=== PATIENT | female | born 1950 | race Caucasian/White ===

== ENCOUNTER 2016-08-19 14:29 | Inpatient (IN) | payer BC ==
[2016-08-19] MEDS ORDERED: DILTIAZEM 5 MG/ML 5 ML VIAL IVP STA ×2 (14:38→15:02)
[2016-08-19] MEDS ORDERED: SODIUM CHLORIDE 0.9% 500 ML IV STA (14:38)
[2016-08-19] MEDS ORDERED: SODIUM CHLORIDE 0.9% 1,000 ML IV STA (14:38)
[2016-08-19] MEDS ORDERED: LORazepam 2 MG/ML SYRINGE IV STA (14:39)
[2016-08-19] MEDS ORDERED: DILTIAZEM 125 MG in SODIUM CHLORIDE 0.9% 100 ML IV ONE (14:42)
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
[2016-08-19 15:12] LABS: ALT 41 U/L (9-52); AST 31 U/L (14-36); Alkaline Phosphatase 95 U/L (38-126); Anion Gap 11 mmol/L; Blood Urea Nitrogen 15 mg/dL (7-17); Calcium 9.3 mg/dL (8.4-10.2); Carbon Dioxide 23 mmol/L (22-30); Chloride 105 mmol/L (98-107); Glucose 128 mg/dL (74-99); Magnesium 1.9 mg/dL (1.6-2.3); Non-African American GFR(MDRD) >60 (>60 ml/min/1.73 sqM); Phosphorous 3.5 mg/dL (2.5-4.5); Potassium 4.3 mmol/L (3.5-5.1); Sodium 139 mmol/L (137-145); Total Bilirubin 0.4 mg/dL (0.2-1.3); Total Protein 7.1 g/dL (6.3-8.2)
[2016-08-19 15:16] LABS: Aty Lym Flag Slight; CH 32.5; CHCM 34.3; Creatine Kinase 77 U/L (30-135); HCT 47.2 % (34.0-46.0); HDW 2.28; HGB 16.7 gm/dL (11.4-16.0); MCH 33.6 pg (25.0-35.0); MCHC 35.3 g/dL (31.0-37.0); MCV 95.1 fL (80.0-100.0); Mean Platelet Volume 6.8; RBC 4.96 m/uL (3.80-5.40); RDW 13.6 % (11.5-15.5); WBC (Perox) 7.86
[2016-08-19 15:19] LABS: Partial Thromboplastin Time 25.1 sec (22.0-30.0); Prothrombin Time 10.6 sec (9.0-12.0)
[2016-08-19] MEDS ORDERED: METOPROLOL TARTRATE 5 MG/5 ML VIAL IVP STA (15:21)
[2016-08-19 15:29] LABS: Creatine Kinase MB 1.2 ng/mL (0.0-2.4); Troponin I <0.012 ng/mL (0.000-0.034)
[2016-08-19 15:39] LABS: Add Differential Manual Differential
[2016-08-19] MEDS ORDERED: ASPIRIN 81 MG CHEW PO STA (15:39)
[2016-08-19] MEDS ORDERED: HEPARIN SODIUM,PORCINE 5,000 UNIT/ML 1 ML VIAL IV ONE (15:39)
[2016-08-19] MEDS ORDERED: HEPARIN SODIUM,PORCINE 5,000 UNIT/ML 1 ML VIAL IV PRN (15:39)
[2016-08-19] MEDS ORDERED: NITROGLYCERIN SL TABS 0.4 MG TAB SUBLINGUAL PRN (15:39)
[2016-08-19 15:42] LABS: Manual Review Performed; Nucleated Red Blood Cells 0 /100 WBC (0-0); Total Cells Counted 100
[2016-08-19 15:43] LABS: RBC Morphology Normal
[2016-08-19] MEDS: HEPARIN SODIUM,PORCINE/D5W PMX 25,000 UNIT in DEXTROSE/WATER 1 500ML.BAG IV SCH (16:13)
[2016-08-19] MEDS: SODIUM CHLORIDE 0.9% 1,000 ML IV SCH (17:30)
[2016-08-19 17:59] VITALS: BMI 24.9
--- NOTE | 2016-08-19 18:36 | XR ---
EXAMINATION TYPE: XR chest 2V DATE OF EXAM: 08/19/2016 COMPARISON: NONE HISTORY: Dizziness TECHNIQUE: Frontal and lateral views of the chest are obtained. FINDINGS: Heart size is normal. Lungs are clear. There is no heart failure. There are chest leads. T here are no hilar masses. Bony thorax is intact. IMPRESSION: No active cardiopulmonary disease.
[2016-08-19] MEDS: METOPROLOL TARTRATE 50 MG TAB PO SCH (21:53)
[2016-08-19 22:07] LABS: Creatine Kinase 68 U/L (30-135)
[2016-08-19 22:19] LABS: Creatine Kinase MB 1.1 ng/mL (0.0-2.4); Troponin I <0.012 ng/mL (0.000-0.034)
[2016-08-20 03:34] LABS: Mean Platelet Volume 6.6
[2016-08-20 03:46] LABS: Cholesterol 167 mg/dL (<200); HDL Cholesterol 98 mg/dL (40-60); Triglycerides 65 mg/dL (<150)
[2016-08-20 03:57] LABS: Creatine Kinase 52 U/L (30-135)
[2016-08-20 04:09] LABS: Creatine Kinase MB 1.1 ng/mL (0.0-2.4); Troponin I <0.012 ng/mL (0.000-0.034)
[2016-08-20] MEDS: SODIUM CHLORIDE 0.9% 1,000 ML IV SCH ×3 (07:46→20:13)
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
[2016-08-20] MEDS: METOPROLOL TARTRATE 50 MG TAB PO SCH ×2 (08:57→20:13)
[2016-08-20] MEDS: ASPIRIN 81 MG CHEW PO SCH (08:57)
[2016-08-20] MEDS ORDERED: ASPIRIN 325 MG TAB PO SCH (09:00)
[2016-08-20] MEDS ORDERED: ATORVASTATIN 80 MG TAB PO SCH (09:00)
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
--- NOTE | 2016-08-20 10:26 | P.PN ---
Progress Note - Text this is an addendum to the dictated cardiology consultation. The patient presents with symptoms of dizziness, diaphoresis and palpitations. She denies any chest discomfort or prior documented history of cardiac disease. And unfortunately she is under a lot of stress and she smokes 2-3 packs a day as well as drinks alcohol on a daily basis. On presentation she was noted to be tachycardic and the rate in the 160s, apparently received adenosine by EMS but with no change and subsequently was started on IV Cardizem and she is back in sinus mechanism at this time. Her rhythm strip could to present atrial flutter but the possibility of atrial tachycardia cannot be totally excluded. She has a history of hypertension but no history of diabetes. Patient was started on oral beta lamont and her IV Cardizem was stopped. We will obtain an echocardiogram with Doppler to evaluate her systolic function. Patient qualifies for anticoagulation but because of the history of severe chronic alcohol intake I'm concerned about the increased risk of bleeding. I have discussed those findings with her in detail. We will await the results of her workup for further recommendations. Thank you for this consult we will follow with you.
--- NOTE | 2016-08-20 10:31 | ECHOF ---
Referral Reason:lv function MEASUREMENTS -------- HEIGHT: 162.6 cm WEIGHT: 66.2 kg BP: 121/76 RVIDd: 2.7 cm (< 3.3) IVSd: 1.2 cm (0.6 - 1.1) LVIDd: 3.9 cm (3.9 - 5.3) LVPWd: 1.2 cm (0.6 - 1.1) IVSs: 1.7 cm LVIDs: 2.6 cm LVPWs: 1.4 cm LA Diam: 2.9 cm (2.7 - 3.8) LAESV Index (A-L): 29.64 ml/m Ao Diam: 3.1 cm (2.0 - 3.7) AV Cusp: 2.2 cm (1.5 - 2.6) MV EXCURSION: 13.666 mm (> 18.000) MV EF SLOPE: 77 mm/s (70 - 150) EPSS: 0.4 cm MV E James: 1.25 m/s MV DecT: 222 ms MV A James: 1.12 m/s MV E/A Ratio: 1.11 RAP: 5.00 mmHg RVSP: 30.18 mmHg FINDINGS -------- Sinus rhythm. This was a technically good study. The left ventricular size is normal. There is borderline concentric left ventricular hypertrophy. Overall left ventricular systolic function is normal with, an EF between 60 - 65 %. The right ventricle is normal in size. LA is midly dilated 29-33ml/m2. The right atrium is normal in size. The aortic valve was not well visualized. The mitral valve leaflets are mildly thickened. Mild mitral annular calcification present. There is trace mitral regurgitation. Mild tricuspid regurgitation present. Right ventricular systolic pressure is normal at < 35 mmHg. The pulmonic valve was not well visualized. The aortic root size is normal. Normal inferior vena cava with normal inspiratory collapse consistent with estimated right atrial pressure of 5 mmHg. The pericardium is normal. CONCLUSIONS -------- 1. Sinus rhythm. 2. Mild mitral annular calcification present. 3. There is trace mitral regurgitation. 4. Mild tricuspid regurgitation present. 5. Right ventricular systolic pressure is normal at < 35 mmHg. 6. The pulmonic valve was not well visualized. 7. The aortic root size is normal. 8. Normal inferior vena cava with normal inspiratory collapse consistent with estimated right atrial pressure of 5 mmHg. 9. The pericardium is normal. 10. This was a technically good study. 11. The left ventricular size is normal. 12. There is borderline concentric left ventricular hypertrophy. 13. Overall left ventricular systolic function is normal with, an EF between 60 - 65 %. 14. The right ventricle is normal in size. 15. LA is midly dilated 29-33ml/m2. 16. The aortic valve was not well visualized. 17. The mitral valve leaflets are mildly thickened. PULL THROUGH HOOKER: Mary Jo Ruiz RDCS
[2016-08-20] MEDS: HEPARIN SODIUM,PORCINE/D5W PMX 25,000 UNIT in DEXTROSE/WATER 1 500ML.BAG IV SCH (11:38)
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
--- NOTE | 2016-08-20 17:49 | PN ---
SUBJECTIVE: This is a 65-year-old white female with dizziness, diaphoresis, palpitations. She is under a lot of stress, smokes 2 to 3 packs a day. Alcohol on a daily basis. Tachycardic. Heart rate is in the 160s. She received adenosine on admission. She is on IV Cardizem at this time. She is on oral beta lamont per Cardiology. Her IV Cardizem was stopped due to chronic alcohol intake; they did not want to do possibly a blood thinner. Echo is pending. CARDIOVASCULAR: S1, S2. LUNGS: Transmitted upper airway sounds. GI: Soft. HEMATOLOGIC: Negative Homans. PSYCH: Non-stop complaining about her with rapid speech. Psychiatrist saw the patient also; said no need for inpatient psych treatment and recommended staying away from alcohol, and no other psychiatric care is needed. ( ) reviewed. ASSESSMENT: 1. Atrial fibrillation, new onset, with history of supraventricular tachycardia. 2. Anxiety. 3. Secondary polycythemia. 4. Hypertension. 5. Dyslipidemia. Continue current treatment. Follow up in the next 24 to 48 hours with plans per Cardiology.
[2016-08-21] MEDS ORDERED: MELATONIN 5 MG TABLET PO PRN (02:19)
[2016-08-21 03:42] LABS: Anion Gap 8 mmol/L; Blood Urea Nitrogen 16 mg/dL (7-17); Calcium 9.3 mg/dL (8.4-10.2); Carbon Dioxide 22 mmol/L (22-30); Chloride 108 mmol/L (98-107); Glucose 109 mg/dL (74-99); Non-African American GFR(MDRD) >60 (>60 ml/min/1.73 sqM); Potassium 4.4 mmol/L (3.5-5.1); Sodium 138 mmol/L (137-145)
[2016-08-21 04:44] VITALS: TEMP 97.8
[2016-08-21 06:46] LABS: Basophils % (A) 0 %; CH 32.3; CHCM 33.3; Eosinophils # (A) 0.1 k/uL (0-0.7); Eosinophils % (A) 1 %; HCT 44.2 % (34.0-46.0); HDW 2.24; HGB 14.3 gm/dL (11.4-16.0); Luc # (Auto) 0.39; Luc % (Auto) 3; Lymphocytes # (A) 1.7 k/uL (1.0-4.8); Lymphocytes % (A) 13 %; MCH 31.4 pg (25.0-35.0); MCHC 32.2 g/dL (31.0-37.0); MCV 97.5 fL (80.0-100.0); Mean Platelet Volume 6.5; Monocytes # (A) 0.8 k/uL (0-1.0); Monocytes % (A) 6 %; Neutrophils % (A) 77 %; RBC 4.54 m/uL (3.80-5.40); RDW 13.7 % (11.5-15.5); WBC 13.1 k/uL (3.8-10.6); WBC (Perox) 12.91
[2016-08-21 09:11] VITALS: RESP 18
[2016-08-21] MEDS ORDERED: METOPROLOL TARTRATE 25 MG TAB PO SCH (10:00)
--- NOTE | 2016-08-21 12:31 | P.PN ---
Subjective Principal diagnosis: Atrial flutter This 65-year-old female who initially presented to the hospital with symptoms of dizziness and diaphoresis. She was found to be in atrial flutter with rapid ventricular response. She is currently in normal sinus rhythm. Patient does have a history of hypertension. She also drinks an excessive amount of alcohol. Due to her alcohol intake Dr. Davis was concerned about the increased risk for bleeding and therefore she was not initiated on anticoagulation. She was started on a beta lamont which we will continue. Blood pressure in the 170 range this morning, patient did not yet received her beta lamont. If blood pressure remains stable, from cardiology's perspective she may be able to be discharged once cleared by her primary. We will make her a follow-up appointment in the office post discharge. Objective - Vital Signs Vital signs: Vital Signs Temp 97.8 F 08/21/16 04:00 Pulse 84 08/21/16 08:00 Resp 18 08/21/16 08:00 BP 175/80 08/21/16 08:00 Pulse Ox 96 08/21/16 04:00 Intake & Output 08/20/16 08/21/16 08/21/16 18:59 06:59 18:59 Intake Total 1188.772 327.25 180 Output Total 600 600 Balance 1188.772 -272.75 -420 Weight 66.7 kg 66.7 kg Intake: IV 130 Heparin Sodium,Porcine/ 130 D5w Pmx 25,000 unit In Dextrose/Water 1 500ml. bag @ 12 UNITS/KG/HR 15. 78 mls/hr IV .Q24H MICHAEL Rx #:[id number] Intake, IV Titration 408.772 197.25 Amount Heparin Sodium,Porcine/ 388.772 197.25 D5w Pmx 25,000 unit In Dextrose/Water 1 500ml. bag @ 12 UNITS/KG/HR 15. 78 mls/hr IV .Q24H MICHAEL Rx #:[id number] Sodium Chloride 0.9% 1, 20 000 ml @ 100 mls/hr IV . Q10H MICHAEL Rx#:[id number] Oral 780 180 Output: Urine 600 600 Other: Voiding Method Toilet Toilet Toilet # Voids 1 1 - Exam PHYSICAL EXAMINATION: HEENT: Head is atraumatic, normocephalic. Pupils equal, round. Neck is supple. There is no elevated jugular venous pressure. HEART EXAMINATION: Heart S1, S2 normal. No murmur or gallop heard. CHEST EXAMINATION: Lungs are clear to auscultation and precussion. No chest wall tenderness is noted on palpation or with deep breathing. ABDOMEN: Soft, nontender. Bowel sounds are heard. No organomegaly noted. EXTREMITIES: 2+ peripheral pulses with no evidence of peripheral edema and no calf tenderness noted. NEUROLOGIC patient is awake, alert and oriented -3. . - Labs CBC & Chem 7: 08/21/16 06:29 08/21/16 03:03 Labs: Abnormal Lab Results - Last 24 Hours (Table) 08/20/16 08/20/16 08/21/16 Range/Units 16:12 22:23 03:03 WBC (3.8-10.6) k/uL Neutrophils # (1.3-7.7) k/uL APTT 43.4 H 46.4 H (22.0-30.0) sec Chloride 108 H (98-107) mmol/L Glucose 109 H (74-99) mg/dL 08/21/16 08/21/16 Range/Units 03:03 06:29 WBC 13.1 H (3.8-10.6) k/uL Neutrophils # 10.0 H (1.3-7.7) k/uL APTT 43.3 H (22.0-30.0) sec Chloride (98-107) mmol/L Glucose (74-99) mg/dL Assessment and Plan Plan: Assessment and plan #1 atrial flutter with rapid ventricular response, paroxysmal. Currently in normal sinus rhythm. TSH normal. #2 hypertension #3 asthma #4 nicotine dependence #5 EtOH abuse #6 anxiety Plan Echocardiogram with Doppler study was performed which revealed normal left ventricular systolic function. From cardiology's perspective we will add Lopressor 25 mg one tablet by mouth twice a day to her medication regime. She may be able to be discharged once cleared by her primary and we'll make her a follow-up appointment in the office post discharge. DNP note has been reviewed, I agree with a documented findings and plan of care. Patient was seen and examined.
[2016-08-21 12:45] VITALS: BP 156/82; PULSE 87
[2016-08-21] MEDS: ASPIRIN 81 MG CHEW PO SCH (13:29)
[2016-08-21] MEDS ORDERED: ALBUTEROL NEBULIZED 2.5 MG/3 ML INHALATION PRN (13:41)
[2016-08-21] MEDS ORDERED: NON-FORMULARY DRUG (Inulin/Chromium Picolinate [Fiber Gummies Chew] 1 TAB) PO SCH (21:00)
[2016-08-22] MEDS ORDERED: TIOTROPIUM 18 MCG/PUFF INHALER INHALATION SCH (08:00)
[2016-08-22] MEDS ORDERED: LACTOBACILLUS ACIDOPH & BULGAR 1 EACH PACKET PO SCH (09:00)
[2016-08-22] MEDS ORDERED: DILTIAZEM CD 180 MG CAP.ER.24H PO SCH (09:00)
[2016-08-22] MEDS ORDERED: CALCIUM CARBONATE 500 MG CHEWABLE PO SCH (09:00)
[2016-08-22] MEDS ORDERED: ESTROGENS, CONJUGATED 0.625 MG TAB PO SCH (09:00)
[2016-08-22] MEDS ORDERED: LISINOPRIL 20 MG TAB PO SCH (09:00)
[2016-08-22] MEDS ORDERED: MULTIVITAMINS, THERA 1 EACH TAB PO SCH (12:00)
== END 2016-08-21 17:21 | disposition home or self-care (01) | DRG 310 ==
LOC: EC 14:29 → 6SEL 15:39
PROVIDERS: ADMIT Family Medicine; ATTEND Family Medicine
DX: I48.92 Unspecified atrial flutter (principal); D75.1 Secondary polycythemia; I10 Essential (primary) hypertension; I48.91 Unspecified atrial fibrillation; J44.9 Chronic obstructive pulmonary disease, unspecified; F43.10 Post-traumatic stress disorder, unspecified; F32.9 Major depressive disorder, single episode, unspecified; F10.20 Alcohol dependence, uncomplicated; F41.9 Anxiety disorder, unspecified; F17.210 Nicotine dependence, cigarettes, uncomplicated; K57.90 Diverticulosis of intestine, part unspecified, without perforation or abscess without bleeding; E78.5 Hyperlipidemia, unspecified; Z79.899 Other long term (current) drug therapy; Z82.49 Family history of ischemic heart disease and other diseases of the circulatory system
CPT/HCPCS: 36415; 71020; 80048; 80053; 80061; 82550; 82553; 83735; 84100; 84439; 84443; 84484; 85025; 85049; 85379; 85610; 85730; 93005; 93306; 96365; 96366; 96367; 96374; 96375; 96376; 99291

== ENCOUNTER 2019-07-05 15:58 | Emergency (ER) | payer BC ==
[2019-07-05 16:18] VITALS: TEMP 98.6
[2019-07-05 16:47] LABS: INR 1.3 (<1.2); Partial Thromboplastin Time 33.3 sec (22.0-30.0); Prothrombin Time 13.1 sec (9.0-12.0)
[2019-07-05 16:48] LABS: HCT 31.4 % (34.0-46.0); HGB 9.7 gm/dL (11.4-16.0); Hypochromasia Marked; MCHC 30.9 g/dL (31.0-37.0); MCV 87.2 fL (80.0-100.0); Platelet Count 664 k/uL (150-450); Poikilocytosis Slight; RDW 14.4 % (11.5-15.5); WBC 9.9 k/uL (3.8-10.6)
[2019-07-05 16:49] LABS: ALT 15 U/L (4-34); AST 23 U/L (14-36); African American GFR (CKD) >90 (>60 ml/min/1.73 sqM); Albumin 4.3 g/dL (3.5-5.0); Alkaline Phosphatase 102 U/L (38-126); Anion Gap 10 mmol/L; Blood Urea Nitrogen 14 mg/dL (7-17); Calcium 9.4 mg/dL (8.4-10.2); Carbon Dioxide 22 mmol/L (22-30); Chloride 103 mmol/L (98-107); Glucose 114 mg/dL (74-99); Magnesium 1.8 mg/dL (1.6-2.3); Non-African American GFR(CKD) >90 (>60 ml/min/1.73 sqM); Potassium 4.4 mmol/L (3.5-5.1); Sodium 135 mmol/L (137-145); Total Bilirubin 0.3 mg/dL (0.2-1.3); Total Protein 7.4 g/dL (6.3-8.2)
--- NOTE | 2019-07-05 16:49 | XR ---
EXAMINATION TYPE: XR chest 1V portable DATE OF EXAM: 07/05/2019 COMPARISON: 08/17/2016 HISTORY: Tachycardia and syncope TECHNIQUE: Single frontal view of the chest is obtained. FINDINGS: Appearing soft tissues partially obscure the lower lungs. There is no focal air space opac ity, pleural effusion, or pneumothorax seen. The cardiac silhouette size is within normal limits. The osseous structures are intact. IMPRESSION: No acute process.
[2019-07-05 17:01] LABS: Lymphocytes # (M) 1.88 k/uL (1.0-4.8); Monocytes # (M) 0.69 k/uL (0-1.0); Neutrophils # (M) 7.23 k/uL (1.3-7.7); Neutrophils % (M) 73 %; Nucleated Red Blood Cells 0 /100 WBC (0-0); Polychromasia Present; Total Cells Counted 100
[2019-07-05 17:41] VITALS: BP 152/79; PULSE 82; RESP 16
--- NOTE | 2019-07-05 17:43 | ED ---
General Adult HPI - General Chief complaint: Arrhythmia/Palpitations Stated complaint: Chest flutter Time Seen by Provider: 07/05/19 16:01 Source: patient Mode of arrival: ambulatory Limitations: no limitations - History of Present Illness Initial comments: Dictation was produced using [employer] dictation software. please excuse any gramm atical, word or spelling errors. This patient was cared for during a federal and state declared state of emergency secondary to Covid 19 Chief Complaint: 68-year-old female presents with palpitations. History of Present Illness: The 68-year-old female presents today with palpitations. Patient states that her palpitations have been more apparent last 48 hours. She states she woke up with palpitations. She does have history of atrial fibrillation. She noted that she her A. fib has been acting up recently. She does consume alcohol occasionally. Patient takes Rivaroxaban, she does have a ob scrub tech. She does take a beta lamont 3 times a day. The ROS documented in this emergency department record has been reviewed and confirmed by me. Those systems with pertinent positive or negative responses have been documented in the HPI. All other systems are other negative and/or noncontributory. PHYSICAL EXAM: General Impression: Alert and oriented x3, not in acute distress HEENT: Normocephalic atraumatic, extra-ocular movements intact, pupils equal and reactive to light bilaterally, mucous membranes moist. Cardiovascular: Heart regular rate and rhythm Chest: Able to complete full sentences, no retractions, no tachypnea Abdomen: abdomen soft, non-tender, non-distended, no organomegaly Musculoskeletal: Pulses present and equal in all extremities, no peripheral farida ma Motor: no focal deficits noted Neurological: CN II-XII grossly intact, no focal motor or sensory deficits noted Skin: Intact with no visualized rashes Psych: Normal affect and mood ED course: 68-year-old female with palpitations. Signs upon arrival are within acceptable limits. EKG shows normal sinus rhythm. Patient is not having palpitations at this time. She does take anticoagulation. Laboratory evaluation obtained. CBC unremarkable. Coag panel is unremarkable. Metabolic panel negative. Patient observed in emergency department for couple hours with no events on teacher adult education. We will increase patient's metoprolol dose. She is advised to follow-up with her ob scrub tech or primary care physician for outpatient management of palpitations. Medications reviewed her chart patient takes 50 mg twice a day. Patient is discharged and told to follow-up with her ob scrub tech. EKG interpretation: Ventricular rate default, normal sinus rhythm, NV interval 140, QRS 70, QTC 423. No NV prolongation, no QTC prolongation, no ST or T-wave changes noted. EKG compared to 08/19/2016 showing no changes. Overall, this EKG is unremarkable - Related Data Home Medications Medication Instructions Recorded Confirmed Albuterol Sulfate [Proventil Hfa] 2 puff INHALATION RT-Q6H PRN 08/19/16 11/16/17 Calcium Carbonate [Tums Ultra 2 tab PO DAILY 08/19/16 11/16/17 Strength] Diltiazem HCl [Diltiazem 24Hr ER] 180 mg PO DAILY 08/19/16 11/16/17 Estrogens, Conjugated [Premarin] 0.625 mg PO DAILY 08/19/16 11/16/17 Inulin/Chromium Picolinate [Fiber 1 tab PO BID 08/19/16 11/16/17 Gummies Chew] L.acidoph,Paracasei, B.lactis 1 cap PO DAILY 08/19/16 11/16/17 [Probiotic] Multivitamins, Thera [Multivitamin 1 tab PO DAILY 08/19/16 11/16/17 (formulary)] Tiotropium [place] [Spiriva] 1 cap INHALATION RT-DAILY 08/19/16 11/16/17 Estrogens, Conjugated [Premarin] 0.625 mg PO DAILY 11/16/17 11/16/17 Lisinopril [Zestril] 20 mg PO BID 11/16/17 11/16/17 Metoprolol Tartrate [Lopressor] 25 mg PO BID 11/16/17 11/16/17 Previous Rx's Medication Instructions Recorded Metoprolol Succinate (ER) [Toprol 100 mg PO DAILY #12 tab 07/05/19 XL] Allergies Allergy/AdvReac Type Severity Reaction Status Date / Time No Known Allergies Allergy Verified 07/05/19 16:15 Review of Systems ROS Statement: Those systems with pertinent positive or pertinent negative responses have been documented in the HPI. ROS Other: All systems not noted in ROS Statement are negative. Past Medical History Past Medical History: Atrial Fibrillation, Asthma, COPD, Hypertension Additional Past Medical History / Comment(s): diverticulosis, incontinent of urine History of Any Multi-Drug Resistant Organisms: C-DIFF Date of last positivie culture/infection: 11/2015 MDRO Source:: stool Past Surgical History: Appendectomy, Hysterectomy, Tonsillectomy Additional Past Surgical History / Comment(s): total hysterectomy Past Anesthesia/Blood Transfusion Reactions: No Reported Reaction Past Psychological History: Anxiety, Depression, PTSD Smoking Status: Current every day smoker Past Alcohol Use History: Daily Past Drug Use History: None Reported - Past Family History Father Family Medical History: Prostate Disorder Additional Family Medical History / Comment(s): panic attacks Mother Family Medical History: Hypertension General Exam Limitations: no limitations Course Vital Signs 07/05/19 07/05/19 16:15 17:40 Temperature 98.6 F Pulse Rate 87 82 Respiratory 18 16 Rate Blood Pressure 166/62 152/79 O2 Sat by Pulse 98 98 Oximetry Medical Decision Making - Lab Data Result diagrams: 07/05/19 16:15 07/05/19 16:15 Lab Results 07/05/19 07/05/19 07/05/19 Range/Units 16:15 16:15 16:15 WBC 9.9 (3.8-10.6) k/uL RBC 3.60 L (3.80-5.40) m/uL Hgb 9.7 L (11.4-16.0) gm/dL Hct 31.4 L (34.0-46.0) % MCV 87.2 (80.0-100.0) fL MCH 27.0 (25.0-35.0) pg MCHC 30.9 L (31.0-37.0) g/dL RDW 14.4 (11.5-15.5) % Plt Count 664 H (150-450) k/uL Neutrophils % (Manual) 73 % Lymphocytes % (Manual) 19 % Monocytes % (Manual) 7 % Basophils % (Manual) 1 % Neutrophils # (Manual) 7.23 (1.3-7.7) k/uL Lymphocytes # (Manual) 1.88 (1.0-4.8) k/uL Monocytes # (Manual) 0.69 (0-1.0) k/uL Basophils # (Manual) 0.10 (0-0.2) k/uL Nucleated RBCs 0 (0-0) /100 WBC Manual Slide Review Performed Polychromasia Present Hypochromasia Marked Poikilocytosis Slight PT 13.1 H (9.0-12.0) sec INR 1.3 H (<1.2) APTT 33.3 H (22.0-30.0) sec Sodium 135 L (137-145) mmol/L Potassium 4.4 (3.5-5.1) mmol/L Chloride 103 (98-107) mmol/L Carbon Dioxide 22 (22-30) mmol/L Anion Gap 10 mmol/L BUN 14 (7-17) mg/dL Creatinine 0.70 (0.52-1.04) mg/dL Est GFR (CKD-EPI)AfAm >90 (>60 ml/min/1.73 sqM) Est GFR (CKD-EPI)NonAf >90 (>60 ml/min/1.73 sqM) Glucose 114 H (74-99) mg/dL Calcium 9.4 (8.4-10.2) mg/dL Magnesium 1.8 (1.6-2.3) mg/dL Total Bilirubin 0.3 (0.2-1.3) mg/dL AST 23 (14-36) U/L ALT 15 (4-34) U/L Alkaline Phosphatase 102 (38-126) U/L Total Protein 7.4 (6.3-8.2) g/dL Albumin 4.3 (3.5-5.0) g/dL Disposition Clinical Impression: Palpitation Disposition: HOME SELF-CARE Condition: Good Instructions (If sedation given, give patient instructions): Heart Palpitations (ED) Additional Instructions: Please follow-up with your ob scrub tech. Resume your normal metoprolol dosing r karen today. Prescription for extended release metoprolol was sent to your preferred pharmacy. Please start 100 mg metoprolol ER tomorrow. Prescriptions: Metoprolol Succinate (ER) [Toprol XL] 100 mg PO DAILY #12 tab Is patient prescribed a controlled substance at d/c from ED?: No Referrals: Enio Shepard DO [Primary Care Provider] - 1-2 days Asaf Gonzalez MD [STAFF PHYSICIAN] - 1-2 days Time of Disposition: 18:23
== END 2019-07-05 18:50 | disposition home or self-care (01) ==
LOC: EC 15:58
DX: R00.2 Palpitations (principal); J44.9 Chronic obstructive pulmonary disease, unspecified; I10 Essential (primary) hypertension; I48.91 Unspecified atrial fibrillation; F17.200 Nicotine dependence, unspecified, uncomplicated; Z79.01 Long term (current) use of anticoagulants; Z79.899 Other long term (current) drug therapy
CPT/HCPCS: 36415; 71045; 80053; 83735; 85025; 85610; 85730; 93005; 99285

== ENCOUNTER 2019-11-09 08:25 | Day surgery (SDC) | payer BC, MEDICARE ==
[2019-10-24 16:07] VITALS: BMI 24.9
[~2019-11-09 08:25] MED LIST: LACTATED RINGERS 1,000 ML IV SCH; LIDOCAINE 1% (10MG/ML) FOR IV START INTRADERMA PRN
[2019-11-09 09:06] VITALS: RESP 16; TEMP 97.4
[2019-11-09] MEDS ORDERED: MIDAZOLAM 2 MG/2 ML VIAL IV ONE ×2 (09:07)
[2019-11-09] MEDS ORDERED: PROPOFOL 10 MG/ML 20 ML VIAL IV ONE (10:28)
--- NOTE | 2019-11-09 11:05 | P.PCN ---
Date of Procedure: 11/09/19 Procedure(s) Performed: Brief history: Patient is a pleasant 69-year-old white female scheduled for an elective upper endoscopy as well as colonoscopy as a part of evaluation of Iron deficiency anemia. Patient states her hemoglobin was 7.2 g/dL in July of this year and since then has been on iron supplements twice daily. She denies any abdominal pain, nausea vomiting, rectal bleeding or melena. Her last 2 weeks ago was 10.9 g/dL. Procedure performed: Esophagogastroduodenoscopy with biopsy Colonoscopy with argon plasma coagulation Preoperative diagnosis: Iron deficiency anemia. Anesthesia: MAC Procedure: After informed consent was obtained from the patient was brought into the endoscopy unit and IV sedation was administered by anesthesia under continuous monitoring. Initially upper endoscopy was done. The Olympus GF 160 video endoscope was inserted inserted into the mouth and esophagus intubated without any difficulty and was gradually advanced into the stomach and duodenum and carefully examined. The bulb and second part of the duodenum appeared normal. Biopsies were done duodenum to rule out celiac disease. The scope was then withdrawn into the stomach adequately insufflated with air and upon careful examination the antrum had scattered areas of erythema and submucosal gastritis and biopsies were done from this area. The body, cardia and fundus appeared normal. The scope was then withdrawn into the esophagus. The GE junction was located at 40 cm to the incisors. It appeared regular wit2 superficial erosions consistent with LA grade B reflux esophagitis.Rest of the esophagus appeared normal. there was some whitish exudates noted in the proximal esophagus and biopsies were done from this area. Patient tolerated the procedure well. At this time the patient continued to remain sedation. Initial digital rectal examination was normal. Olympus CF 160 video colonoscope was then inserted into the rectum and gradually advanced to the cecum without any difficulty. Careful examination was performed as the scope was gradually being withdrawn. The prep was excellent. In the base of the cecum where a large arteriovenous malformation measuring between 8 mm to 1 cm in size with no active bleeding. Argon plasma coagulation was performed performed with obliteration. The cecum, ascending colon, transverse colon, descending colon, sigmoid colon and rectum appeared normal. Scattered left-sided diverticulosis seen. Retroflexion was performed in the rectum and grade 2 internal hemorrhoids were noted. Patient tolerated the procedure well. Impression: 1. Upper endoscopy revealed mild antral gastritis and LA grade B reflux esophagitis 2. 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 Scattered sigmoid diverticulosis and grade 2 internal hemorrhoids Recommendations: Findings of this examination were discussed with the patient as well as her family. She was advised to follow with the biopsy results. She will continue with iron supplements daily. CBC on a monthly basis.
[2019-11-09] MEDS ORDERED: ONDANSETRON 4 MG/2 ML VIAL ONE (11:24)
[2019-11-09] MEDS ORDERED: ONDANSETRON 4 MG/2 ML VIAL IVP ONE (11:29)
[2019-11-09 11:32] VITALS: BP 164/75; PULSE 67
== END 2019-11-09 12:13 | disposition home or self-care (01) ==
LOC: ORWHC2ENDO 08:25
PROVIDERS: ATTEND Internal Medicine Gastroenterology
DX: Q27.39 Arteriovenous malformation, other site (principal); K64.1 Second degree hemorrhoids; K57.30 Diverticulosis of large intestine without perforation or abscess without bleeding; K29.50 Unspecified chronic gastritis without bleeding; D50.9 Iron deficiency anemia, unspecified; K22.10 Ulcer of esophagus without bleeding; I10 Essential (primary) hypertension; I48.91 Unspecified atrial fibrillation; J44.9 Chronic obstructive pulmonary disease, unspecified; F17.200 Nicotine dependence, unspecified, uncomplicated; R32 Unspecified urinary incontinence; F41.9 Anxiety disorder, unspecified; F32.9 Major depressive disorder, single episode, unspecified; F43.10 Post-traumatic stress disorder, unspecified; Z86.010 Personal history of colon polyps; Z97.2 Presence of dental prosthetic device (complete) (partial); Z79.890 Hormone replacement therapy; Z79.899 Other long term (current) drug therapy
CPT/HCPCS: 88305; 43239; 45388; J2250; J2405; J2704; 45382

== ENCOUNTER 2021-01-24 15:29 | Observation (INO) | payer BC, MEDICARE ==
--- NOTE | 2021-01-24 16:11 | ED ---
General Adult HPI - General Chief complaint: Dizziness Stated complaint: Afib Source: patient, EMS Mode of arrival: EMS Limitations: no limitations - History of Present Illness Initial comments: Patient is a 70-year-old female with past history of A. fib presents to the emergency department feeling dizzy. She admits that she awoke this morning and began ambulating. She bent forward to grab for something and almost fell forward. States that she was having a difficult time controlling her balance. Patient called EMS and was found to be in A. fib with a rapid rate. She did take her morning medications. She follows with Dr. Patterson out of [facility]. 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 Bailey. She is normally takes 1.5 pills of sotalol twice daily however as of Tuesday this medication was decreased to 1 pill twice daily because she reports that she was having too much nausea. She continues to take Cardizem. She denies palpitations or chest pain. No shortness of breath. Denies any head injuries. No headache or visual changes. Patient does drink alcohol daily. States that she normally drinks small spirits so she can identify how much she is drinking. She drink was last night. Reports that she has never felt like this in the morning after drinking. No other alleviating, precipitating modifying factors - Related Data Home Medications Medication Instructions Recorded Confirmed L.acidoph,Paracasei, B.lactis 1 cap PO DAILY 08/19/16 01/24/21 [Probiotic] Multivitamins, Thera [Multivitamin 1 tab PO DAILY 08/19/16 01/24/21 (formulary)] Tiotropium [place] [Spiriva] 1 cap INHALATION RT-DAILY 08/19/16 01/24/21 Estrogens, Conjugated [Premarin] 0.625 mg PO DAILY 11/16/17 01/24/21 Diltiazem HCl [Diltiazem HCl 24Hr 180 mg PO BID 01/24/21 01/24/21 ER (CD)] Losartan [Cozaar] 50 mg PO DAILY 01/24/21 01/24/21 Rivaroxaban [Xarelto] 20 mg PO HS 01/24/21 01/24/21 Previous Rx's Medication Instructions Recorded Digoxin [Lanoxin] 125 mcg PO DAILY #30 tab 01/25/21 Thiamine [Vitamin B-1] 100 mg PO BID-W/MEALS #60 tab 01/25/21 Allergies Allergy/AdvReac Type Severity Reaction Status Date / Time No Known Allergies Allergy Verified 01/24/21 17:49 Review of Systems ROS Statement: Those systems with pertinent positive or pertinent negative responses have been documented in the HPI. ROS Other: All systems not noted in ROS Statement are negative. Past Medical History Past Medical History: Atrial Fibrillation, Asthma, COPD, Hypertension Additional Past Medical History / Comment(s): diverticulosis, urinary incontinence, current anemia, loss of bowel control recently, hx. colon polyps, poss. thyroid nodule History of Any Multi-Drug Resistant Organisms: C-DIFF Date of last positivie culture/infection: 11/2015, 2017 MDRO Source:: stool Past Surgical History: Appendectomy, Hysterectomy, Orthopedic Surgery, Tonsillectomy Additional Past Surgical History / Comment(s): foot surg., rhinoplasty, cataracts removed, blepharoplasty,fallopian tube surg. Past Anesthesia/Blood Transfusion Reactions: No Reported Reaction Past Psychological History: Anxiety, Depression, PTSD Smoking Status: Current every day smoker - Past Family History Father Family Medical History: Prostate Disorder Additional Family Medical History / Comment(s): panic attacks Mother Family Medical History: Hypertension General Exam Limitations: no limitations General appearance: alert, in no apparent distress Head exam: Present: atraumatic, normocephalic, normal inspection Eye exam: Present: normal appearance, PERRL, EOMI. Absent: scleral icterus, conjunctival injection, periorbital swelling ENT exam: Present: normal exam, mucous membranes moist Neck exam: Present: normal inspection. Absent: tenderness, meningismus, lymphadenopathy Respiratory exam: Present: normal lung sounds bilaterally. Absent: respiratory distress, wheezes, rales, rhonchi, stridor Cardiovascular Exam: Present: tachycardia, irregular rhythm, normal heart sounds. Absent: systolic murmur, diastolic murmur, rubs, gallop, clicks GI/Abdominal exam: Present: soft, normal bowel sounds. Absent: distended, tenderness, guarding, rebound, rigid Extremities exam: Present: normal inspection, full ROM, normal capillary refill. Absent: tenderness, pedal edema, joint swelling, calf tenderness Back exam: Present: normal inspection Neurological exam: Present: alert, oriented X3, CN II-XII intact Psychiatric exam: Present: normal affect, normal mood Skin exam: Present: warm, dry, intact, normal color. Absent: rash Course Vital Signs 01/24/21 01/24/21 01/24/21 15:58 17:06 19:06 Temperature 98.1 F Pulse Rate 107 H 111 H Pulse Rate [ 124 H Hull Inspector ] Respiratory 18 20 Rate Blood Pressure 144/89 147/111 Blood Pressure [Right Arm] O2 Sat by Pulse 98 98 Oximetry 01/25/21 01/25/21 01/25/21 00:00 06:00 07:58 Temperature 98 F Pulse Rate 96 84 Pulse Rate [ 77 Hull Inspector ] Respiratory 16 16 16 Rate Blood Pressure 129/76 156/101 Blood Pressure 151/79 [Right Arm] O2 Sat by Pulse 98 95 95 Oximetry 01/25/21 12:00 Temperature 98 F Pulse Rate Pulse Rate [ 82 Hull Inspector ] Respiratory 18 Rate Blood Pressure Blood Pressure 151/79 [Right Arm] O2 Sat by Pulse 97 Oximetry EKG Findings - EKG Comments: EKG Findings:: EKG demonstrates A. fib with a rate of 100. QRS 78. QTC 430. No acute ST segment elevations or depressions Medical Decision Making - Medical Decision Making Upon arrival patient was placed into room 8. A thorough history and physical exam was performed. Patient placed in continuous pulse ox and cardiac monitoring. IV is established laboratory studies were conducted. Patient for chest x-ray. She continues to be in A. fib with a rapid ventricular rate. Patient is started on a Cardizem drip and will be admitted to the hospital for cardiology consultation. Patient agreed to the plan and is currently awaiting a bed on the floor - Lab Data Result diagrams: 01/25/21 09:11 01/25/21 09:11 Lab Results 01/24/21 01/24/21 01/24/21 Range/Units 17:29 17:29 17:29 WBC 11.2 H (3.8-10.6) k/uL RBC 4.70 (3.80-5.40) m/uL Hgb 16.0 (11.4-16.0) gm/dL Hct 46.5 H (34.0-46.0) % MCV 99.0 (80.0-100.0) fL MCH 34.1 (25.0-35.0) pg MCHC 34.5 (31.0-37.0) g/dL RDW 13.1 (11.5-15.5) % Plt Count 417 (150-450) k/uL MPV 7.7 Neutrophils % 76 % Lymphocytes % 11 % Monocytes % 8 % Eosinophils % 1 % Basophils % 1 % Neutrophils # 8.5 H (1.3-7.7) k/uL Lymphocytes # 1.3 (1.0-4.8) k/uL Monocytes # 0.9 (0-1.0) k/uL Eosinophils # 0.1 (0-0.7) k/uL Basophils # 0.1 (0-0.2) k/uL PT 10.9 (9.0-12.0) sec INR 1.0 (<1.2) APTT 29.9 (22.0-30.0) sec Sodium 134 L (137-145) mmol/L Potassium 4.5 (3.5-5.1) mmol/L Chloride 107 (98-107) mmol/L Carbon Dioxide 19 L (22-30) mmol/L Anion Gap 8 mmol/L BUN 17 (7-17) mg/dL Creatinine 0.65 (0.52-1.04) mg/dL Est GFR (CKD-EPI)AfAm >90 (>60 ml/min/1.73 sqM) Est GFR (CKD-EPI)NonAf >90 (>60 ml/min/1.73 sqM) Glucose 108 H (74-99) mg/dL Calcium 9.2 (8.4-10.2) mg/dL Total Bilirubin 0.5 (0.2-1.3) mg/dL AST 32 (14-36) U/L ALT 21 (4-34) U/L Alkaline Phosphatase 107 (38-126) U/L Troponin I (0.000-0.034) ng/mL Total Protein 7.3 (6.3-8.2) g/dL Albumin 4.1 (3.5-5.0) g/dL 01/24/21 Range/Units 17:29 WBC (3.8-10.6) k/uL RBC (3.80-5.40) m/uL Hgb (11.4-16.0) gm/dL Hct (34.0-46.0) % MCV (80.0-100.0) fL MCH (25.0-35.0) pg MCHC (31.0-37.0) g/dL RDW (11.5-15.5) % Plt Count (150-450) k/uL MPV Neutrophils % % Lymphocytes % % Monocytes % % Eosinophils % % Basophils % % Neutrophils # (1.3-7.7) k/uL Lymphocytes # (1.0-4.8) k/uL Monocytes # (0-1.0) k/uL Eosinophils # (0-0.7) k/uL Basophils # (0-0.2) k/uL PT (9.0-12.0) sec INR (<1.2) APTT (22.0-30.0) sec Sodium (137-145) mmol/L Potassium (3.5-5.1) mmol/L Chloride (98-107) mmol/L Carbon Dioxide (22-30) mmol/L Anion Gap mmol/L BUN (7-17) mg/dL Creatinine (0.52-1.04) mg/dL Est GFR (CKD-EPI)AfAm (>60 ml/min/1.73 sqM) Est GFR (CKD-EPI)NonAf (>60 ml/min/1.73 sqM) Glucose (74-99) mg/dL Calcium (8.4-10.2) mg/dL Total Bilirubin (0.2-1.3) mg/dL AST (14-36) U/L ALT (4-34) U/L Alkaline Phosphatase (38-126) U/L Troponin I <0.012 (0.000-0.034) ng/mL Total Protein (6.3-8.2) g/dL Albumin (3.5-5.0) g/dL Critical Care Time Critical Care Time: Yes Critical Care Time: 35 minutes Disposition Clinical Impression: Atrial fibrillation with RVR Disposition: ADMITTED IP TO THIS [facility] Condition: Good Is patient prescribed a controlled substance at d/c from ED?: No Decision to Admit Reason: Admit from EC Decision Date: 01/24/21 Decision Time: 19:46
--- NOTE | 2021-01-24 17:17 | XR ---
EXAMINATION TYPE: XR chest 2V DATE OF EXAM: 01/24/2021 COMPARISON: 07/05/2019 HISTORY: Atrial fibrillation TECHNIQUE: 2 views FINDINGS: Heart is normal. Lungs are clear of consolidation. There are no hilar masses. Thoracic aort a is atheromatous. There is subsegmental atelectasis left lung base. There are chest leads. IMPRESSION: Minimal pleural reaction and subsegmental atelectasis left lung base is new compared to o ld exam. Normal heart.
[2021-01-24 17:51] LABS: Basophils # (A) 0.1 k/uL (0-0.2); Basophils % (A) 1 %; Eosinophils # (A) 0.1 k/uL (0-0.7); Eosinophils % (A) 1 %; HCT 46.5 % (34.0-46.0); Lymphocytes # (A) 1.3 k/uL (1.0-4.8); Lymphocytes % (A) 11 %; MCH 34.1 pg (25.0-35.0); MCHC 34.5 g/dL (31.0-37.0); Mean Platelet Volume 7.7; Monocytes # (A) 0.9 k/uL (0-1.0); Monocytes % (A) 8 %; Neutrophils # (A) 8.5 k/uL (1.3-7.7); Neutrophils % (A) 76 %; Platelet Count 417 k/uL (150-450); RDW 13.1 % (11.5-15.5); WBC 11.2 k/uL (3.8-10.6)
[2021-01-24 17:56] LABS: Partial Thromboplastin Time 29.9 sec (22.0-30.0); Prothrombin Time 10.9 sec (9.0-12.0)
[2021-01-24 17:58] LABS: ALT 21 U/L (4-34); AST 32 U/L (14-36); African American GFR (CKD) >90 (>60 ml/min/1.73 sqM); Albumin 4.1 g/dL (3.5-5.0); Alkaline Phosphatase 107 U/L (38-126); Anion Gap 8 mmol/L; Blood Urea Nitrogen 17 mg/dL (7-17); Calcium 9.2 mg/dL (8.4-10.2); Carbon Dioxide 19 mmol/L (22-30); Chloride 107 mmol/L (98-107); Glucose 108 mg/dL (74-99); Non-African American GFR(CKD) >90 (>60 ml/min/1.73 sqM); Potassium 4.5 mmol/L (3.5-5.1); Sodium 134 mmol/L (137-145); Total Bilirubin 0.5 mg/dL (0.2-1.3); Total Protein 7.3 g/dL (6.3-8.2)
[2021-01-24] MEDS ORDERED: LORazepam 2 MG/ML INJ IV STA (18:05)
[2021-01-24] MEDS ORDERED: NICOTINE 21MG/24HR PATCH TRANSDERM STA (19:00)
[2021-01-24] MEDS ORDERED: DILTIAZEM DRIP BOLUS FROM BAG 1 MG SOLN IV ONE (19:37)
[2021-01-24] MEDS ORDERED: DILTIAZEM 125 MG in SODIUM CHLORIDE 0.9% 100 ML IV SCH (19:45)
[2021-01-24] MEDS ORDERED: NALOXONE 0.4 MG/ML 1 ML VIAL IV PRN (19:46)
[2021-01-24] MEDS ORDERED: THIAMINE 100 MG/ML 2 ML VIAL IM STA (19:48)
[2021-01-24] MEDS ORDERED: LORazepam 2 MG/ML INJ IV PRN ×3 (19:48)
[2021-01-24] MEDS ORDERED: SODIUM CHLORIDE 0.9% 1,000 ML IV SCH (20:00)
[2021-01-24] MEDS ORDERED: RIVAROXABAN 20 MG TAB PO SCH (23:45)
[2021-01-24] MEDS ORDERED: ALPRAZolam 0.5 MG TAB PO STA (23:56)
--- NOTE | 2021-01-25 00:41 | P.HPIM ---
History of Present Illness H&P Date: 01/24/21 Chief Complaint: DIZZINESS 70 year old female with Afib , COPD patient comes in after experiencing dizziness, and feeling off balance, along with palpitations. she denies any chest pain fever, chills, URI symptoms , denies any vomiting, but reports feeling nauseas with frequent diarrhea that has been going on for a while, where it was thought to be secndary to sotalol , and her dose has been lowered recently . she believes that she has been going into palpitations for the past couple days at least ,but today got worse and decided to come in , denies any history of blood clots, CAD. she is feeling better now. patient also reports heavy smoking, and daily alcohol drinking of about 7 drinks of bourbon but denies any illicit drugs blood work unremarkable CXR pleural reaction otherwise unremarkable EKG afib Review of Systems Pertinent positives as noted in HPI. All other systems were reviewed and are negative Past Medical History Past Medical History: Atrial Fibrillation, Asthma, COPD, Hypertension Additional Past Medical History / Comment(s): diverticulosis, urinary incontinence, current anemia, loss of bowel control recently, hx. colon polyps, poss. thyroid nodule History of Any Multi-Drug Resistant Organisms: C-DIFF Date of last positivie culture/infection: 2017 MDRO Source:: stool Past Surgical History: Appendectomy, Hysterectomy, Orthopedic Surgery, Tonsillectomy Additional Past Surgical History / Comment(s): foot surg., rhinoplasty, cataracts removed, blepharoplasty,fallopian tube surg. Past Anesthesia/Blood Transfusion Reactions: No Reported Reaction Past Psychological History: Anxiety, Depression, PTSD Smoking Status: Current every day smoker - Past Family History Father Family Medical History: Prostate Disorder Additional Family Medical History / Comment(s): panic attacks Mother Family Medical History: Hypertension Medications and Allergies Home Medications Medication Instructions Recorded Confirmed Type L.acidoph,Paracasei, B.lactis 1 cap PO DAILY 08/19/16 01/24/21 History [Probiotic] Multivitamins, Thera [Multivitamin 1 tab PO DAILY 08/19/16 01/24/21 History (formulary)] Tiotropium [place] [Spiriva] 1 cap INHALATION RT-DAILY 08/19/16 01/24/21 History Estrogens, Conjugated [Premarin] 0.625 mg PO DAILY 11/16/17 01/24/21 History Diltiazem HCl [Diltiazem HCl 24Hr 180 mg PO BID 01/24/21 01/24/21 History ER (CD)] Losartan [Cozaar] 50 mg PO DAILY 01/24/21 01/24/21 History Rivaroxaban [Xarelto] 20 mg PO HS 01/24/21 01/24/21 History Sotalol [Betapace] 120 mg PO BID 01/24/21 01/24/21 History Allergies Allergy/AdvReac Type Severity Reaction Status Date / Time No Known Allergies Allergy Verified 01/24/21 17:49 Physical Exam Vitals: Vital Signs Temp Pulse Pulse Resp BP Pulse Ox 01/24/21 19:06 111 H 20 147/111 98 01/24/21 17:06 124 H 01/24/21 15:58 98.1 F 107 H 18 144/89 98 Intake and Output 01/24/21 01/24/21 01/25/21 14:59 22:59 06:59 Other: Weight 74.162 kg Constitutional: No acute distress, conversant, pleasant Eyes: Anicteric sclerae, moist conjunctiva, Pupils equal round reactive to light ENMT: NC/AT Oropharynx clear, no erythema, or exudates Neck: Supple, FROM, no masses, or JVD No carotid bruits No thyromegaly Lungs: Clear to auscultation Clear to percussion Normal respiratory effort, no accessory muscle use Cardiovascular: Heart irregular No murmurs, gallops, or rubs No peripheral edema Abdominal: Soft Nontender, no guarding, rebound or rigidity Abdomen moving with respiration Normoactive bowel sounds No hepatomegaly, No splenomegaly No palpable mass No abdominal wall hernia noted Skin: Normal temperature, tone, texture, turgor No induration No subcutaneous nodules No rash, lesions No ulcers Extremities: No digital cyanosis No clubbing Pedal pulses intact and symmetrical Radial pulses intact and symmetrical No calf tenderness Psychiatric: Alert and oriented to person, place and time Appropriate affect fair judgement Neuro Muscles Strength 5/5 in all 4 extremities Sensation to light touch grossly present throughout Cranial nerves II-XII grossly intact No focal sensory deficits Lymphatics: no palpable cervical or supraclavicular , or inguinal lymph nodes Results CBC & Chem 7: 01/24/21 17:29 01/24/21 17:29 Labs: Abnormal Lab Results - Last 24 Hours (Table) 01/24/21 01/24/21 Range/Units 17:29 17:29 WBC 11.2 H (3.8-10.6) k/uL Hct 46.5 H (34.0-46.0) % Neutrophils # 8.5 H (1.3-7.7) k/uL Sodium 134 L (137-145) mmol/L Carbon Dioxide 19 L (22-30) mmol/L Glucose 108 H (74-99) mg/dL Assessment and Plan Assessment: afib with RVR cardizem drip cardiology consult EKG reviewed check TSH resume xarelto school lunch monitor IVF hydration with NS 0.9% alcohol dependance benzo per CIWA thiamine chronic conditions COPD not on home oxygen , Duoneb PRN full code DVT PPX on xarelto for afib anticipated length of stay < 2 midnights
[2021-01-25] MEDS: THIAMINE 100 MG TAB PO SCH ×2 (01:33→09:47)
[2021-01-25] MEDS ORDERED: DILTIAZEM CD 180 MG CAP.ER.24H PO STA (07:51)
[2021-01-25] MEDS ORDERED: IPRATROPIUM 0.5 MG/2.5 ML NEBU INHALATION SCH (08:00)
[2021-01-25 08:05] VITALS: BP 151/79; TEMP 98
[2021-01-25] MEDS ORDERED: LOSARTAN 50 MG TAB PO SCH (09:00)
[2021-01-25] MEDS ORDERED: DILTIAZEM ORAL 60 MG TAB PO SCH (09:00)
[2021-01-25] MEDS ORDERED: DIGOXIN 125 MCG TAB PO SCH (09:00)
[2021-01-25 09:36] LABS: Basophils # (A) 0.1 k/uL (0-0.2); Basophils % (A) 1 %; Eosinophils # (A) 0.1 k/uL (0-0.7); Eosinophils % (A) 1 %; HGB 15.4 gm/dL (11.4-16.0); Lymphocytes # (A) 1.3 k/uL (1.0-4.8); Lymphocytes % (A) 15 %; MCH 32.8 pg (25.0-35.0); MCHC 33.4 g/dL (31.0-37.0); MCV 98.2 fL (80.0-100.0); Mean Platelet Volume 7.6; Monocytes # (A) 0.7 k/uL (0-1.0); Monocytes % (A) 9 %; Neutrophils # (A) 6.2 k/uL (1.3-7.7); Neutrophils % (A) 72 %; Platelet Count 345 k/uL (150-450); RBC 4.69 m/uL (3.80-5.40); RDW 12.6 % (11.5-15.5); WBC 8.7 k/uL (3.8-10.6)
[2021-01-25 09:43] LABS: ALT 21 U/L (4-34); AST 30 U/L (14-36); African American GFR (CKD) >90 (>60 ml/min/1.73 sqM); Albumin 3.8 g/dL (3.5-5.0); Alkaline Phosphatase 85 U/L (38-126); Anion Gap 5 mmol/L; Blood Urea Nitrogen 16 mg/dL (7-17); Calcium 8.9 mg/dL (8.4-10.2); Carbon Dioxide 25 mmol/L (22-30); Chloride 105 mmol/L (98-107); Glucose 101 mg/dL (74-99); Non-African American GFR(CKD) >90 (>60 ml/min/1.73 sqM); Potassium 4.2 mmol/L (3.5-5.1); Sodium 135 mmol/L (137-145); Total Bilirubin 0.4 mg/dL (0.2-1.3); Total Protein 6.9 g/dL (6.3-8.2)
--- NOTE | 2021-01-25 11:05 | P.CRDCN ---
History of Present Illness Consult date: 01/25/21 Consult reason: atrial fibrillation Chief complaint: A. fib with RVR History of present illness: This is Simon Duncan NP dictating a consult on this patient on behalf of Dr. Henao. The patient was interviewed and examined. HPI: [Patient is a pleasant 62-year-old female with a past medical history that includes atrial fibrillation, asthma, COPD, hypertension. Patient reports that she was at home yesterday, but over the pick something up in a very dizzy. She reports that the dizziness did not yohana, and this prompted her to call EMS. EMS discovered the patient was in atrial fibrillation with rapid ventricular response on telemetry. Patient was brought to the emergency department and started on a Cardizem drip. Patient reports he recently had her sotalol decreased due to side effects.] ROS: [No fever, chills, or rigors] [no cough, phlegm, or expectoration] [no nausea, vomiting, or diarrhea] [no hematuria, dysuria] [no musculoskelatal complaints] [no strokes or seizures] [no skin lesions] EXAMINATION: GENERAL: Well-appearing, well-nourished and in no acute distress. NECK: Supple without JVD or thyromegaly. LUNGS: Breath sounds clear to auscultation bilaterally. Respiration equal and unlabored. No wheezes, rales or rhonchi. HEART: Regular rate and rhythm without murmurs, rubs or gallops. S1 and S2 heard. EXTREMITIES: Normal range of motion, no edema. No clubbing or cyanosis. Peripheral pulses intact and strong. REVIEW OF LABS, ECG & MEDICAL DATA: LABS: White count 8.7, hemoglobin 15.4, platelets 345, sodium 135, potassium 4.2, BUN 16, creatinine 0.60, calcium 8.9, troponin-less than 0.012, 0.031, less than 0.012; TSH 3.25 EKG: EKG dated 01/24/2021 shows atrial fibrillation with a heart rate of 100. Patient's currently normal sinus rhythm on telemetry IMAGING: Chest x-ray dated 01/24/2021-minimal pleural reaction and subsegmental atelectasis left lung base is new compared to old exam. Normal heart. VITALS: Temp 98.0, pulse 77, respirations 16, blood pressure 151/79, O2 saturation 95% on room air. IMPRESSION/PLAN: 1. A. fib with RVR-patient appears to have converted back to normal sinus rhythm. Stop sotalol completely. Restart patient's home medications. Patient can continue on Cardizem 180 mg twice a day. Stop Cardizem drip. Start digoxin 0.125 mg daily. From a cardiology standpoint the patient can be discharged home at this time. She should follow-up with her newspaper correspondent as an outpatient in the next one to 2 weeks. The patient has been seen and evaluated. Plan of care has been reviewed and agreed upon by Dr. Henao. Thank you for the consult and allowing us to participate in the care of this patient. The patient's condition changes or other recommendations are needed, please contact us. Past Medical History Past Medical History: Atrial Fibrillation, Asthma, COPD, Hypertension Additional Past Medical History / Comment(s): diverticulosis, urinary incontinence, current anemia, loss of bowel control recently, hx. colon polyps, poss. thyroid nodule History of Any Multi-Drug Resistant Organisms: C-DIFF Date of last positivie culture/infection: 2017 MDRO Source:: stool Past Surgical History: Appendectomy, Hysterectomy, Orthopedic Surgery, Tonsillectomy Additional Past Surgical History / Comment(s): foot surg., rhinoplasty, kasey racts removed, blepharoplasty,fallopian tube surg. Past Anesthesia/Blood Transfusion Reactions: No Reported Reaction Past Psychological History: Anxiety, Depression, PTSD Smoking Status: Current every day smoker - Past Family History Father Family Medical History: Prostate Disorder Additional Family Medical History / Comment(s): panic attacks Mother Family Medical History: Hypertension Medications and Allergies Home Medications Medication Instructions Recorded Confirmed Type L.acidoph,Paracasei, B.lactis 1 cap PO DAILY 08/19/16 01/24/21 History [Probiotic] Multivitamins, Thera [Multivitamin 1 tab PO DAILY 08/19/16 01/24/21 History (formulary)] Tiotropium [place] [Spiriva] 1 cap INHALATION RT-DAILY 08/19/16 01/24/21 History Estrogens, Conjugated [Premarin] 0.625 mg PO DAILY 11/16/17 01/24/21 History Diltiazem HCl [Diltiazem HCl 24Hr 180 mg PO BID 01/24/21 01/24/21 History ER (CD)] Losartan [Cozaar] 50 mg PO DAILY 01/24/21 01/24/21 History Rivaroxaban [Xarelto] 20 mg PO HS 01/24/21 01/24/21 History Digoxin [Lanoxin] 125 mcg PO DAILY #30 tab 01/25/21 Rx Sotalol [Betapace] 120 mg PO BID #60 tab 01/25/21 Rx Thiamine [Vitamin B-1] 100 mg PO BID-W/MEALS #60 tab 01/25/21 Rx Allergies Allergy/AdvReac Type Severity Reaction Status Date / Time No Known Allergies Allergy Verified 01/24/21 17:49 Physical Exam Vitals: Vital Signs Temp Pulse Pulse Resp BP BP Pulse Ox 01/25/21 07:58 98 F 77 16 151/79 95 01/25/21 06:00 84 16 156/101 95 01/25/21 00:00 96 16 129/76 98 01/24/21 19:06 111 H 20 147/111 98 01/24/21 17:06 124 H 01/24/21 15:58 98.1 F 107 H 18 144/89 98 Intake and Output 01/24/21 01/25/21 01/25/21 22:59 06:59 14:59 Intake Total 50.583 Balance 50.583 Intake: Intake, IV Titration 50.583 Amount Diltiazem 125 mg In 50.583 Sodium Chloride 0.9% 100 ml @ 5 MG/HR 5 mls/hr IV .Q24H [facility] Rx#:[id number] Other: Weight 74.162 kg Results 01/25/21 09:11 01/25/21 09:11 Cardiac Enzymes 01/24/21 01/24/21 01/24/21 Range/Units 17:29 17:29 22:04 AST 32 (14-36) U/L Troponin I <0.012 0.031 (0.000-0.034) ng/mL 01/25/21 01/25/21 Range/Units 01:17 09:11 AST 30 (14-36) U/L Troponin I <0.012 (0.000-0.034) ng/mL Coagulation 01/24/21 Range/Units 17:29 PT 10.9 (9.0-12.0) sec APTT 29.9 (22.0-30.0) sec CBC 01/24/21 01/25/21 Range/Units 17:29 09:11 WBC 11.2 H 8.7 (3.8-10.6) k/uL RBC 4.70 4.69 (3.80-5.40) m/uL Hgb 16.0 15.4 (11.4-16.0) gm/dL Hct 46.5 H 46.0 (34.0-46.0) % Plt Count 417 345 (150-450) k/uL Comprehensive Metabolic Panel 01/24/21 01/25/21 Range/Units 17:29 09:11 Sodium 134 L 135 L (137-145) mmol/L Potassium 4.5 4.2 (3.5-5.1) mmol/L Chloride 107 105 (98-107) mmol/L Carbon Dioxide 19 L 25 (22-30) mmol/L BUN 17 16 (7-17) mg/dL Creatinine 0.65 0.60 (0.52-1.04) mg/dL Glucose 108 H 101 H (74-99) mg/dL Calcium 9.2 8.9 (8.4-10.2) mg/dL AST 32 30 (14-36) U/L ALT 21 21 (4-34) U/L Alkaline Phosphatase 107 85 (38-126) U/L Total Protein 7.3 6.9 (6.3-8.2) g/dL Albumin 4.1 3.8 (3.5-5.0) g/dL Current Medications Generic Name Dose Route Start Last Admin Trade Name Freq PRN Reason Stop Dose Admin Digoxin 125 mcg 01/25/21 09:00 01/25/21 09:47 Digoxin 125 Mcg Tab PO 125 mcg DAILY MICHAEL Administration Diltiazem HCl 180 mg 01/25/21 09:00 Diltiazem Oral 60 Mg Tab PO BID MICHAEL Sodium Chloride 1,000 mls @ 75 mls/hr 01/24/21 20:00 01/24/21 20:18 Saline 0.9% IV 75 mls/hr .[id number] MICHAEL Administration Ipratropium [place] 1 mg 01/25/21 08:00 01/25/21 08:25 Ipratropium 0.5 Mg/2.5 Ml Nebu INHALATION Not Given QID MICHAEL Lorazepam 1 mg 01/24/21 19:48 Lorazepam 2 Mg/Ml Inj IV Q2HR PRN CIWA 8 or 9 Lorazepam 1 mg 01/24/21 19:48 Lorazepam 2 Mg/Ml Inj IV Q1HR PRN CIWA 10 to 15 Lorazepam 2 mg 01/24/21 19:48 Lorazepam 2 Mg/Ml Inj IV 01/26/21 19:48 Q10M PRN CIWA 16 or higher Losartan Potassium 50 mg 01/25/21 09:00 01/25/21 09:47 Losartan 50 Mg Tab PO 50 mg DAILY MICHAEL Administration Naloxone HCl 0.2 mg 01/24/21 19:46 Naloxone 0.4 Mg/Ml 1 Ml Vial IV Q2M PRN Opioid Reversal Rivaroxaban 20 mg 01/24/21 23:45 01/25/21 01:41 Rivaroxaban 20 Mg Tab PO 20 mg HS MICHAEL Administration Protocol Thiamine HCl 100 mg 01/24/21 20:00 01/25/21 09:47 Thiamine 100 Mg Tab PO 100 mg BID-W/MEALS MICHAEL Administration Intake and Output 01/24/21 01/25/21 01/25/21 22:59 06:59 14:59 Intake Total 50.583 Balance 50.583 Intake: Intake, IV Titration 50.583 Amount Diltiazem 125 mg In 50.583 Sodium Chloride 0.9% 100 ml @ 5 MG/HR 5 mls/hr IV .Q24H [facility] Rx#:[id number] Other: Weight 74.162 kg 01/25/21 09:11 01/25/21 09:11
[2021-01-25 12:24] VITALS: PULSE 82; RESP 18
--- NOTE | 2021-01-25 17:06 | P.DS ---
Providers Date of admission: 01/24/21 19:46 Expected date of discharge: 01/25/21 Attending physician: Luh Queen MD Consults: 01/24/21 19:47 Consult Physician Urgent Consulting Provider: [facility] Consult Reason/Comments: afib with rvr Do you want consulting provider notified?: Yes Primary care physician: [facility] Course: 70 year old female with Afib , COPD presented after experiencing dizziness, feeling off balance, and palpitations. Paroxysmal Afib with RVR Patient started on cardizem drip and cardiology consulted. Pt's sotalol was resumed at 120mg BID. Digoxin was started as well. Patient's home diltiazem was resumed. Patient's HR spontaneously converted to sinus rhythm, and cardizem was d/c'd. Cardiology felt that patient should discontinue sotalol on discharge. Pt was sent home with instructions to f/u with PCP and cardiology. Alcohol dependance Thiamine prescribed on discharge. Pt was counseled on ETOH cessation. COPD not on home oxygen No changes to home medications. Assessment: Gen: awake, alert HEENT: normocephalic, atraumatic, good hearing acuity, moist mucous membranes Resp: good air exchange, breathing comfortably with no accessory muscle use CVS: good distal perfusion x 4, GI: soft, NTTP, ND : no SPT, no CVAT, leonardo catheter not present MSK: no pitting edema, no clubbing Neuro: non-focal, moving all extremities Psych: cooperative, euthymic mood Patient Condition at Discharge: Good Plan - Discharge Summary New Discharge Prescriptions: New Digoxin [Lanoxin] 125 mcg PO DAILY #30 tab Thiamine [Vitamin B-1] 100 mg PO BID-W/MEALS #60 tab Continue Multivitamins, Thera [Multivitamin (formulary)] 1 tab PO DAILY Tiotropium [place] [Spiriva] 1 cap INHALATION RT-DAILY Brittany Black B.lactis [Probiotic] 1 cap PO DAILY Estrogens, Conjugated [Premarin] 0.625 mg PO DAILY Rivaroxaban [Xarelto] 20 mg PO HS Losartan [Cozaar] 50 mg PO DAILY Diltiazem HCl [Diltiazem HCl 24Hr ER (CD)] 180 mg PO BID Discontinued Sotalol [Betapace] 120 mg PO BID Discharge Medication List L.acidoph,Paracasei, B.lactis [Probiotic] 1 cap PO DAILY 08/19/16 [History] Multivitamins, Thera [Multivitamin (formulary)] 1 tab PO DAILY 08/19/16 [History] Tiotropium [place] [Spiriva] 1 cap INHALATION RT-DAILY 08/19/16 [History] Estrogens, Conjugated [Premarin] 0.625 mg PO DAILY 11/16/17 [History] Diltiazem HCl [Diltiazem HCl 24Hr ER (CD)] 180 mg PO BID 01/24/21 [History] Losartan [Cozaar] 50 mg PO DAILY 01/24/21 [History] Rivaroxaban [Xarelto] 20 mg PO HS 01/24/21 [History] Digoxin [Lanoxin] 125 mcg PO DAILY #30 tab 01/25/21 [Rx] Thiamine [Vitamin B-1] 100 mg PO BID-W/MEALS #60 tab 01/25/21 [Rx] Follow up Appointment(s)/Referral(s): Enio Shepard DO [Primary Care Provider] - 1-2 days Patient Instructions/Handouts: A-fib (Atrial Fibrillation) (DC) Discharge Disposition: HOME SELF-CARE
== END 2021-01-25 12:39 | disposition home or self-care (01) ==
LOC: EC 15:29 → INTOOBSV 19:46 → 3SCARD 19:46 → UNDODISIN 01-25 12:39
PROVIDERS: ADMIT Internal Medicine; ATTEND Internal Medicine
PROC: HZ2ZZZZ Detoxification Services for Substance Abuse Treatment (ICD-10-PCS; principal; 2021-01-24)
DX: I48.0 Paroxysmal atrial fibrillation (principal); J44.9 Chronic obstructive pulmonary disease, unspecified; I10 Essential (primary) hypertension; R32 Unspecified urinary incontinence; D64.9 Anemia, unspecified; R11.0 Nausea; R19.7 Diarrhea, unspecified; F17.200 Nicotine dependence, unspecified, uncomplicated; F43.10 Post-traumatic stress disorder, unspecified; F10.20 Alcohol dependence, uncomplicated; Z71.41 Alcohol abuse counseling and surveillance of alcoholic; K57.90 Diverticulosis of intestine, part unspecified, without perforation or abscess without bleeding; F32.A Depression, unspecified; J98.11 Atelectasis; Z20.822 Contact with and (suspected) exposure to COVID-19; Z86.010 Personal history of colon polyps; Z90.710 Acquired absence of both cervix and uterus; Z90.49 Acquired absence of other specified parts of digestive tract; Z79.899 Other long term (current) drug therapy; Z79.01 Long term (current) use of anticoagulants; Z82.49 Family history of ischemic heart disease and other diseases of the circulatory system; Z84.89 Family history of other specified conditions; Z81.8 Family history of other mental and behavioral disorders
CPT/HCPCS: 96376; 96365; 96366 ×2; 96372; 96375; 99285; 36415; 93005 ×2; 80053 ×2; 84443; 84484 ×2; 85025 ×2; 85610; 85730; 87635; 71046; G0378 ×2; S4990; J2060; J3411; 96374

== ENCOUNTER → 2021-05-01 | Outpatient (CLI) | payer BC, MEDICARE ==
[2021-05-01 23:19] LABS: HCT 45.4 % (37.2-46.3); HGB 14.7 g/dL (12.0-15.0); MCH 32.7 pg (27.0-32.0); MCHC 32.4 g/dL (32.0-37.0); MCV 101.1 fL (80.0-97.0); Mean Platelet Volume 10.9 fL (9.5-12.2); NRBC Per 100 WBC 0 /100 WBCS (0.0-0.0); Platelet Count 313 X 10*3/uL (140-440); RBC 4.49 X 10*6/uL (4.10-5.20); RDW 13.2 % (11.5-14.5); WBC 9.69 X 10*3/uL (4.50-10.00)
[2021-05-02 00:38] LABS: African American GFR (CKD) 84.8 (60.0-200.0); BUN/Creat Ratio 19.93 Ratio (12.00-20.00); Blood Urea Nitrogen 16.4 mg/dL (9.0-27.0); Calcium 8.9 mg/dL (8.7-10.3); Carbon Dioxide 22.6 mmol/L (20.0-27.5); Non-African American GFR(CKD) 73.2 (60.0-200.0); Potassium 4.7 mmol/L (3.5-5.5)
== END | disposition home or self-care (01) ==
LOC: LABWHC1 14:22
PROVIDERS: ATTEND Internal Medicine
DX: I48.91 Unspecified atrial fibrillation (principal)
CPT/HCPCS: 36415; 80048; 85027

== ENCOUNTER 2021-05-10 11:01 | Inpatient (IN) | payer BC, MEDICARE ==
--- NOTE | 2021-05-10 11:14 | ED ---
General Adult HPI - General Stated complaint: chest pain Time Seen by Provider: 05/10/21 11:01 Source: patient, RN notes reviewed, old records reviewed - History of Present Illness Initial comments: This is a 70-year-old female presents emergency department with past medical history significant for atrial fibrillation with recent ablation this week. Patient also smokes and she has high blood pressure. Patient comes in today because last night she started having sharp chest pain and it continued today so she came to the emergency department via EMS. Patient also states it hurts to take a deep breath. Patient denies any swelling to her legs or calf tenderness. Patient denies any fever chills or cough. Patient denies lightheadedness or dizziness. Patient denies any headache. Patient denies numbness or weakness. - Related Data Home Medications Medication Instructions Recorded Confirmed L.acidBrittany karimi B.lactis 1 cap PO DAILY 08/19/16 01/24/21 [Probiotic] Multivitamins, Thera [Multivitamin 1 tab PO DAILY 08/19/16 01/24/21 (formulary)] Tiotropium [place] [Spiriva] 1 cap INHALATION RT-DAILY 08/19/16 01/24/21 Estrogens, Conjugated [Premarin] 0.625 mg PO DAILY 11/16/17 01/24/21 Diltiazem HCl [Diltiazem HCl 24Hr 180 mg PO BID 01/24/21 01/24/21 ER (CD)] Losartan [Cozaar] 50 mg PO DAILY 01/24/21 01/24/21 Rivaroxaban [Xarelto] 20 mg PO HS 01/24/21 01/24/21 Previous Rx's Medication Instructions Recorded Digoxin [Lanoxin] 125 mcg PO DAILY #30 tab 01/25/21 Thiamine [Vitamin B-1] 100 mg PO BID-W/MEALS #60 tab 01/25/21 Allergies Allergy/AdvReac Type Severity Reaction Status Date / Time No Known Allergies Allergy Verified 01/24/21 17:49 Review of Systems ROS Statement: Those systems with pertinent positive or pertinent negative responses have been documented in the HPI. ROS Other: All systems not noted in ROS Statement are negative. Past Medical History Past Medical History: Atrial Fibrillation, Asthma, COPD, Hypertension Additional Past Medical History / Comment(s): diverticulosis, urinary incontinence, current anemia, loss of bowel control recently, hx. colon polyps, poss. thyroid nodule History of Any Multi-Drug Resistant Organisms: C-DIFF Date of last positivie culture/infection: 2017 MDRO Source:: stool Past Surgical History: Appendectomy, Hysterectomy, Orthopedic Surgery, Tonsillectomy Additional Past Surgical History / Comment(s): foot surg., rhinoplasty, cataracts removed, blepharoplasty,fallopian tube surg. Past Anesthesia/Blood Transfusion Reactions: No Reported Reaction Past Psychological History: Anxiety, Depression, PTSD Smoking Status: Current every day smoker - Past Family History Father Family Medical History: Prostate Disorder Additional Family Medical History / Comment(s): panic attacks Mother Family Medical History: Hypertension General Exam - General Exam Comments Initial Comments: GENERAL: Patient is well-developed and well-nourished. Patient is nontoxic and well- hydrated and is in mild distress. ENT: Neck is soft and supple. No significant lymphadenopathy is noted. Oropharynx is clear. Moist mucous membranes. Neck has full range of motion without eliciting any pain. EYES: The sclera were anicteric and conjunctiva were pink and moist. Extraocular movements were intact and pupils were equal round and reactive to light. Eyelids were unremarkable. PULMONARY: Unlabored respirations. Good breath sounds bilaterally. No audible rales rhonchi or wheezing was noted. CARDIOVASCULAR: There is a regular rate and rhythm without any murmurs gallops or rubs. ABDOMEN: Soft and nontender with normal bowel sounds. SKIN: Skin is clear with no lesions or rashes and otherwise unremarkable. NEUROLOGIC: Patient is alert and oriented x3. Cranial nerves II through XII are grossly intact. Motor and sensory are also intact. Normal speech, volume and content. Symmetrical smile. MUSCULOSKELETAL: Normal extremities with adequate strength and full range of motion. No lower extremity swelling or edema. No calf tenderness. LYMPHATICS: No significant lymphadenopathy is noted PSYCHIATRIC: Normal psychiatric evaluation. Course Vital Signs 05/10/21 05/10/21 11:04 11:16 Temperature 98.1 F Pulse Rate 62 Respiratory 18 Rate Blood Pressure 196/99 172/81 O2 Sat by Pulse 95 Oximetry Medical Decision Making - Medical Decision Making EKG shows sinus bradycardia 57 bpm MN interval is on a 46 QRS is 85 QT interval 478 QTC is 472. Patient's EKG shows no ST segment elevation or depression. Chest x-ray shows no acute abnormality. Patient states she has been urinating more recently. A urinalysis will be ordered and patient will be given prophylactic Rocephin at this point time because of the high white count. Patient's troponin was elevated EKG. I spoke with sound physicians agreed to admit the patient admitted the patient I wrote admitting orders. Consulted cardiology I spoke with Dr. Walsh the tooth cutter clutch at [facility] he felt that a CAT scan and keeping the patient and her facility overnight was appropriate care. - Lab Data Result diagrams: 05/10/21 11:35 05/10/21 11:35 Lab Results 05/10/21 05/10/21 05/10/21 Range/Units 11:35 11:35 11:35 WBC 18.7 H (3.8-10.6) k/uL RBC 4.43 (3.80-5.40) m/uL Hgb 14.8 (11.4-16.0) gm/dL Hct 44.5 (34.0-46.0) % MCV 100.5 H (80.0-100.0) fL MCH 33.4 (25.0-35.0) pg MCHC 33.3 (31.0-37.0) g/dL RDW 13.3 (11.5-15.5) % Plt Count 356 (150-450) k/uL MPV 7.2 Neutrophils % 81 % Lymphocytes % 5 % Monocytes % 9 % Eosinophils % 2 % Basophils % 0 % Neutrophils # 15.2 H (1.3-7.7) k/uL Lymphocytes # 0.8 L (1.0-4.8) k/uL Monocytes # 1.6 H (0-1.0) k/uL Eosinophils # 0.4 (0-0.7) k/uL Basophils # 0.1 (0-0.2) k/uL PT 12.8 H (9.0-12.0) sec INR 1.2 H (<1.2) APTT 32.7 H (22.0-30.0) sec D-Dimer 0.63 H (<0.60) mg/L FEU Sodium 135 L (137-145) mmol/L Potassium 4.0 (3.5-5.1) mmol/L Chloride 101 (98-107) mmol/L Carbon Dioxide 24 (22-30) mmol/L Anion Gap 10 mmol/L BUN 18 H (7-17) mg/dL Creatinine 0.73 (0.52-1.04) mg/dL Est GFR (CKD-EPI)AfAm >90 (>60 ml/min/1.73 sqM) Est GFR (CKD-EPI)NonAf 85 (>60 ml/min/1.73 sqM) Glucose 122 H (74-99) mg/dL Calcium 8.9 (8.4-10.2) mg/dL Magnesium 1.7 (1.6-2.3) mg/dL Total Bilirubin 0.8 (0.2-1.3) mg/dL AST 40 H (14-36) U/L ALT 47 H (4-34) U/L Alkaline Phosphatase 102 (38-126) U/L Troponin I (0.000-0.034) ng/mL NT-Pro-B Natriuret Pep pg/mL Total Protein 7.7 (6.3-8.2) g/dL Albumin 4.3 (3.5-5.0) g/dL Urine Color Urine Appearance (Clear) Urine pH (5.0-8.0) Ur Specific [place] (1.001-1.035) Urine Protein (Negative) Urine Glucose (UA) (Negative) Urine Ketones (Negative) Urine Blood (Negative) Urine Nitrite (Negative) Urine Bilirubin (Negative) Urine Urobilinogen (<2.0) mg/dL Ur Leukocyte Esterase (Negative) 05/10/21 05/10/21 05/10/21 Range/Units 11:35 11:35 12:46 WBC (3.8-10.6) k/uL RBC (3.80-5.40) m/uL Hgb (11.4-16.0) gm/dL Hct (34.0-46.0) % MCV (80.0-100.0) fL MCH (25.0-35.0) pg MCHC (31.0-37.0) g/dL RDW (11.5-15.5) % Plt Count (150-450) k/uL MPV Neutrophils % % Lymphocytes % % Monocytes % % Eosinophils % % Basophils % % Neutrophils # (1.3-7.7) k/uL Lymphocytes # (1.0-4.8) k/uL Monocytes # (0-1.0) k/uL Eosinophils # (0-0.7) k/uL Basophils # (0-0.2) k/uL PT (9.0-12.0) sec INR (<1.2) APTT (22.0-30.0) sec D-Dimer (<0.60) mg/L FEU Sodium (137-145) mmol/L Potassium (3.5-5.1) mmol/L Chloride (98-107) mmol/L Carbon Dioxide (22-30) mmol/L Anion Gap mmol/L BUN (7-17) mg/dL Creatinine (0.52-1.04) mg/dL Est GFR (CKD-EPI)AfAm (>60 ml/min/1.73 sqM) Est GFR (CKD-EPI)NonAf (>60 ml/min/1.73 sqM) Glucose (74-99) mg/dL Calcium (8.4-10.2) mg/dL Magnesium (1.6-2.3) mg/dL Total Bilirubin (0.2-1.3) mg/dL AST (14-36) U/L ALT (4-34) U/L Alkaline Phosphatase (38-126) U/L Troponin I 0.362 H* (0.000-0.034) ng/mL NT-Pro-B Natriuret Pep 726 pg/mL Total Protein (6.3-8.2) g/dL Albumin (3.5-5.0) g/dL Urine Color Light Yellow Urine Appearance Clear (Clear) Urine pH 7.0 (5.0-8.0) Ur Specific [place] 1.009 (1.001-1.035) Urine Protein Negative (Negative) Urine Glucose (UA) Negative (Negative) Urine Ketones Negative (Negative) Urine Blood Negative (Negative) Urine Nitrite Negative (Negative) Urine Bilirubin Negative (Negative) Urine Urobilinogen <2.0 (<2.0) mg/dL Ur Leukocyte Esterase Negative (Negative) Disposition Clinical Impression: Chest pain, Elevated troponin, Leukocytosis Disposition: ADMITTED IP TO THIS HOSP Referrals: Enio Shepard DO [Primary Care Provider] - 1-2 days Time of Disposition: 12:33
[2021-05-10 11:45] LABS: Basophils # (A) 0.1 k/uL (0-0.2); Basophils % (A) 0 %; Eosinophils # (A) 0.4 k/uL (0-0.7); Eosinophils % (A) 2 %; HCT 44.5 % (34.0-46.0); HGB 14.8 gm/dL (11.4-16.0); Lymphocytes # (A) 0.8 k/uL (1.0-4.8); Lymphocytes % (A) 5 %; MCH 33.4 pg (25.0-35.0); MCHC 33.3 g/dL (31.0-37.0); MCV 100.5 fL (80.0-100.0); Mean Platelet Volume 7.2; Monocytes # (A) 1.6 k/uL (0-1.0); Monocytes % (A) 9 %; Neutrophils # (A) 15.2 k/uL (1.3-7.7); Neutrophils % (A) 81 %; Platelet Count 356 k/uL (150-450); RBC 4.43 m/uL (3.80-5.40); RDW 13.3 % (11.5-15.5); WBC 18.7 k/uL (3.8-10.6)
[2021-05-10 11:55] LABS: ALT 47 U/L (4-34); AST 40 U/L (14-36); African American GFR (CKD) >90 (>60 ml/min/1.73 sqM); Albumin 4.3 g/dL (3.5-5.0); Alkaline Phosphatase 102 U/L (38-126); Anion Gap 10 mmol/L; Blood Urea Nitrogen 18 mg/dL (7-17); Calcium 8.9 mg/dL (8.4-10.2); Carbon Dioxide 24 mmol/L (22-30); Chloride 101 mmol/L (98-107); Glucose 122 mg/dL (74-99); Magnesium 1.7 mg/dL (1.6-2.3); Non-African American GFR(CKD) 85 (>60 ml/min/1.73 sqM); Sodium 135 mmol/L (137-145); Total Bilirubin 0.8 mg/dL (0.2-1.3); Total Protein 7.7 g/dL (6.3-8.2)
[2021-05-10 12:05] LABS: INR 1.2 (<1.2); Partial Thromboplastin Time 32.7 sec (22.0-30.0); Prothrombin Time 12.8 sec (9.0-12.0)
--- NOTE | 2021-05-10 12:09 | XR ---
EXAMINATION TYPE: XR chest 2V DATE OF EXAM: 05/10/2021 COMPARISON: 01/24/2021 HISTORY: Chest pain TECHNIQUE: Frontal and lateral views of the chest are obtained. FINDINGS: There is mild cardiomegaly and mild cephalization the pulmonary vasculature. There are sma ll bilateral pleural effusions. Findings most consistent with CHF. There is no pneumothorax. The osseous structures are intact IMPRESSION: Mild acute cardiomegaly disease most consistent with mild CHF.
[2021-05-10] MEDS ORDERED: cefTRIAXone IN SWFI 1,000 MG/10 ML SYRINGE IVP STA (12:28)
[2021-05-10] MEDS ORDERED: ASPIRIN 81 MG PO STA (12:33)
[2021-05-10] MEDS ORDERED: NITROGLYCERIN SL TABS 0.4 MG TAB SUBLINGUAL PRN (12:33)
[2021-05-10 12:56] LABS: Appearance,Urine Clear (Clear); Bilirubin,Urine Negative (Negative); Blood,Urine Negative (Negative); Color,Urine Light Yellow; Glucose,Urine (UA) Negative (Negative); Ketones,Urine Negative (Negative); Leukocyte Esterase,Urine Negative (Negative); Nitrite,Urine Negative (Negative); Protein,Urine Negative (Negative); Specific Gravity,Urine 1.009 (1.001-1.035); Urobilinogen,Urine <2.0 mg/dL (<2.0)
--- NOTE | 2021-05-10 13:07 | P.HPIM ---
History of Present Illness Chief Complaint: Chest pain Patient is a 70-year-old female with a past medical history of atrial fibrillation status post ablation, hypertension, hyperlipidemia that presents to the hospital complaining of chest pain. This started last 24 hours located in the substernal area and also radiates to the back mainly to the trapezius area. This is reproducible gets worse on deep inspiration nothing makes it better nothing makes it better. EKG was completed in the ER department did not show any ST segment elevation or depression. troponins were elevated at 0.362. EKG is sinus bradycardia. CBC completed 18.7 WBC count, BMP review electrode was within normal limits creatinine 0.73 ESDL T slightly elevated 40 and 47 respectively. ER physician is going to contact cardiology from the ear department for any further recommendations. Patient denies any episodes of fever, chills, nausea or vomiting. Accompanied by her present at bedside. Chest x-ray reviewed possible vascular congestion. Past Medical History Past Medical History: Atrial Fibrillation, Asthma, COPD, Hypertension Additional Past Medical History / Comment(s): diverticulosis, urinary incontinence, current anemia, loss of bowel control recently, hx. colon polyps, poss. thyroid nodule History of Any Multi-Drug Resistant Organisms: C-DIFF Date of last positivie culture/infection: 2017 MDRO Source:: stool Past Surgical History: Appendectomy, Hysterectomy, Orthopedic Surgery, Tonsillectomy Additional Past Surgical History / Comment(s): foot surg., rhinoplasty, cataracts removed, blepharoplasty,fallopian tube surg. Past Anesthesia/Blood Transfusion Reactions: No Reported Reaction Past Psychological History: Anxiety, Depression, PTSD Smoking Status: Current every day smoker - Past Family History Father Family Medical History: Prostate Disorder Additional Family Medical History / Comment(s): panic attacks Mother Family Medical History: Hypertension Medications and Allergies Home Medications Medication Instructions Recorded Confirmed Type L.acidoph,Paracasei, B.lactis 1 cap PO DAILY 08/19/16 01/24/21 History [Probiotic] Multivitamins, Thera [Multivitamin 1 tab PO DAILY 08/19/16 01/24/21 History (formulary)] Tiotropium [place] [Spiriva] 1 cap INHALATION RT-DAILY 08/19/16 01/24/21 History Estrogens, Conjugated [Premarin] 0.625 mg PO DAILY 11/16/17 01/24/21 History Diltiazem HCl [Diltiazem HCl 24Hr 180 mg PO BID 01/24/21 01/24/21 History ER (CD)] Losartan [Cozaar] 50 mg PO DAILY 01/24/21 01/24/21 History Rivaroxaban [Xarelto] 20 mg PO HS 01/24/21 01/24/21 History Digoxin [Lanoxin] 125 mcg PO DAILY #30 tab 01/25/21 Rx Thiamine [Vitamin B-1] 100 mg PO BID-W/MEALS #60 tab 01/25/21 Rx Allergies Allergy/AdvReac Type Severity Reaction Status Date / Time No Known Allergies Allergy Verified 01/24/21 17:49 Physical Exam Vitals: Vital Signs Temp Pulse Resp BP Pulse Ox 05/10/21 11:16 172/81 05/10/21 11:04 98.1 F 62 18 196/99 95 Intake and Output 05/09/21 05/10/21 05/10/21 21:59 06:59 14:59 Other: Weight 72.575 kg Gen. patient is awake alert oriented 3 Cardiac normal S1/S2 heard no murmurs appreciated Respiratory no wheezing or rhonchi bilateral air entry Abdomen soft, nontender positive bowel sounds [place] skeletal reproducible chest pain substernal as well as trapezius Results CBC & Chem 7: 05/10/21 11:35 05/10/21 11:35 Labs: Abnormal Lab Results - Last 24 Hours (Table) 05/10/21 05/10/21 05/10/21 Range/Units 11:35 11:35 11:35 WBC 18.7 H (3.8-10.6) k/uL MCV 100.5 H (80.0-100.0) fL Neutrophils # 15.2 H (1.3-7.7) k/uL Lymphocytes # 0.8 L (1.0-4.8) k/uL Monocytes # 1.6 H (0-1.0) k/uL PT 12.8 H (9.0-12.0) sec INR 1.2 H (<1.2) APTT 32.7 H (22.0-30.0) sec D-Dimer 0.63 H (<0.60) mg/L FEU Sodium 135 L (137-145) mmol/L BUN 18 H (7-17) mg/dL Glucose 122 H (74-99) mg/dL AST 40 H (14-36) U/L ALT 47 H (4-34) U/L Troponin I (0.000-0.034) ng/mL 05/10/21 Range/Units 11:35 WBC (3.8-10.6) k/uL MCV (80.0-100.0) fL Neutrophils # (1.3-7.7) k/uL Lymphocytes # (1.0-4.8) k/uL Monocytes # (0-1.0) k/uL PT (9.0-12.0) sec INR (<1.2) APTT (22.0-30.0) sec D-Dimer (<0.60) mg/L FEU Sodium (137-145) mmol/L BUN (7-17) mg/dL Glucose (74-99) mg/dL AST (14-36) U/L ALT (4-34) U/L Troponin I 0.362 H* (0.000-0.034) ng/mL Assessment and Plan Assessment: Assessment: #1 elevated cardiac troponin secondary to recent ablation versus ACS #2 chest pain rule out ACS versus muscle skeletal etiology #3 history of atrial fibrillation status post ablation on antiplatelet ablation #4 essential hypertension #5 hyperlipidemia #6 leukocytosis most likely reactive. Plan: -Admit to medicine for close monitoring -Aspiration/fall precaution -Chronic troponins continue to trend I believe this is most likely related to the ablation that was completed . The patient is also complaining of intractable reproducible chest pain -Pain control when necessary -Cardiology consult in the emergency department pending further recommendations -Obtain 2-D echocardiogram, lipid profile, hemoglobin A1c for risk str atification -Leukocytosis most likely reactive but we will monitor for any infectious etiology. X-ray negative showing vascular congestion -DVT prophylaxis resume home medication patient states shes on xaralto pending pharmacy to verify all medication.
[2021-05-10] MEDS ORDERED: KETOROLAC 15 MG/ML 1 ML VIAL IM STA (13:11)
--- NOTE | 2021-05-10 13:37 | CT ---
EXAMINATION TYPE: CT chest angio for PE DATE OF EXAM: 05/10/2021 COMPARISON: None HISTORY: Chest pain CT DLP: 269.6 mGycm Automated exposure control for dose reduction was used. CONTRAST: CT Chest for pulmonary embolism performed with with IV Contrast, patient injected with 65 mL of Isovu e 370. FINDINGS: LUNGS: The lungs are clear of consolidative or airspace density. The heart is enlarged and there is m ild increase interstitial markings consistent with mild interstitial edema. There are small bilateral pleural effusions and mild by basilar atelectasis. The findings are most consistent with CHF. MEDIASTINUM: There is satisfactory enhancement of the pulmonary artery and its branches, there is no CT evidence for pulmonary embolism. There are no greater than 1 cm hilar or mediastinal lymph nodes. No pericardial effusion is seen. OTHER: No additional significant abnormality is seen. IMPRESSION: 1. No evidence of pulmonary embolism. 2. Findings most consistent with mild CHF.
[2021-05-10] MEDS ORDERED: KETOROLAC 15 MG/ML 1 ML VIAL IVP STA (13:52)
[2021-05-10] MEDS ORDERED: MORPHINE SULFATE 2 MG/ML SYRINGE IVP STA (14:51)
[2021-05-10] MEDS: MORPHINE SULFATE 2 MG/ML SYRINGE IVP PRN ×2 (15:40→23:30)
--- NOTE | 2021-05-10 15:58 | CONS ---
CONSULTATION CHIEF COMPLAINT: Chest pain. Lena is a 70-year-old lady with history of paroxysmal atrial fibrillation and hypertension who underwent ablation at [facility] on . The patient was doing well on Tuesday and developed chest discomfort on Tuesday. She describes it as a sharp chest discomfort that radiates across the chest into the back. It is mild to moderate in intensity without clear-cut relieving or exacerbating factors. It gets worse with a deep breath. Her swallowing is unimpaired and she does not have any diaphoresis, fever or chills. She came to our emergency room, where her white cell count was elevated of unclear etiology and her troponin was mildly elevated at 0.3. I have been consulted for the pain. Her EKG does not reveal any ischemic changes. The troponin elevation could be related to recent cardiac intervention. White cell count elevation is unclear. Needs to be evaluated for sepsis and infection. The admitting physician will do the same. She had a CT scan of the chest that was negative for pulmonary embolism and there was no significant pericardial effusion and no evidence of mediastinal pathology. At the time of my evaluation, she appears comfortable at rest. Her blood pressure is poorly controlled. PAST MEDICAL HISTORY: Significant for hypertension, paroxysmal atrial fibrillation. MEDICATIONS: Medications at home included sotalol 180 b.i.d., Xarelto 20 daily, Lasix 40 daily, Cozaar 50 daily, and Cardizem 180 t.i.d. ALLERGIES: NO KNOWN DRUG ALLERGIES. FAMILY HISTORY: Negative for premature coronary artery disease. SOCIAL HISTORY: Denies current smoking, ETOH abuse or drug abuse. REVIEW OF SYSTEMS: HEENT is unremarkable. CARDIAC: As described above. RESPIRATORY: Negative. GI: Negative. GENITOURINARY: Negative. ALLERGY/IMMUNOLOGY: Negative. SKIN: Negative. MUSCULOSKELETAL: Negative. ENDOCRINE: Negative. DERMATOLOGY: Negative. CONSTITUTIONAL: Negative. ONCOLOGICAL: Negative. BOOK PUBLISHER: Negative. PHYSICAL EXAMINATION: Comfortable at rest. Afebrile. Heart rate is 60 beats per minute. Blood pressure is , respiratory rate is 18. There is no jugular venous distention. Chest exam reveals good air entry bilaterally. Heart exam reveals first and second heart sounds. An S4 is heard. Abdomen is soft. Examination of extremities did not reveal any edema. Peripheral pulses are felt. LABS: As described above. ASSESSMENT: 1. Elevated troponin, probably related to recent ablation. 2. Paroxysmal atrial fibrillation, status post ablation. 3. Atypical chest pain; exact etiology is unclear. There is no evidence of any procedure-related complications. She had a CT scan of the chest that was essentially benign. 4. Hypertension. PLAN: Please resume her home medications, including Xarelto, Cozaar, Cardizem and the sotalol that she is on. Obtain a 2D echo in the morning. I advised the ER physician to get in touch with her primary chief wellness officer in [facility] and if necessary she can be transferred over there. If not, we can keep her here overnight and if she is feeling better discharge her home in the morning to arrange followup with her own chief wellness officer. MMODL / IJN: [id number] /
[2021-05-10] MEDS ORDERED: LORazepam 2 MG/ML INJ IV PRN ×3 (22:20)
[2021-05-10] MEDS ORDERED: FUROSEMIDE 40 MG TAB PO PRN (23:08)
[2021-05-10] MEDS ORDERED: FAMOTIDINE 20 MG TAB PO PRN (23:08)
[2021-05-10] MEDS: RIVAROXABAN 20 MG TAB PO SCH (23:28)
[2021-05-10] MEDS: DILTIAZEM CD 180 MG CAP.ER.24H PO SCH (23:29)
[2021-05-10] MEDS: NICOTINE 21MG/24HR PATCH TRANSDERM SCH (23:29)
[2021-05-10] MEDS ORDERED: bisacodyL 5 MG TABLET.DR PO STA (23:33)
[2021-05-10] MEDS: THIAMINE 100 MG TAB PO SCH (23:49)
[2021-05-11] MEDS: THIAMINE 100 MG TAB PO SCH ×2 (06:45→17:44)
[2021-05-11 07:27] LABS: Basophils # (A) 0.1 k/uL (0-0.2); Basophils % (A) 0 %; Eosinophils # (A) 0.4 k/uL (0-0.7); Eosinophils % (A) 4 %; HCT 42.8 % (34.0-46.0); HGB 13.9 gm/dL (11.4-16.0); Lymphocytes # (A) 1.3 k/uL (1.0-4.8); Lymphocytes % (A) 12 %; MCH 33.1 pg (25.0-35.0); MCHC 32.5 g/dL (31.0-37.0); MCV 101.7 fL (80.0-100.0); Mean Platelet Volume 7.5; Monocytes # (A) 1.2 k/uL (0-1.0); Monocytes % (A) 11 %; Neutrophils # (A) 7.5 k/uL (1.3-7.7); Neutrophils % (A) 69 %; Platelet Count 331 k/uL (150-450); RBC 4.21 m/uL (3.80-5.40); RDW 12.7 % (11.5-15.5); WBC 10.9 k/uL (3.8-10.6)
[2021-05-11 07:51] LABS: African American GFR (CKD) >90 (>60 ml/min/1.73 sqM); Anion Gap 3 mmol/L; Blood Urea Nitrogen 13 mg/dL (7-17); Calcium 8.7 mg/dL (8.4-10.2); Carbon Dioxide 26 mmol/L (22-30); Chloride 104 mmol/L (98-107); Glucose 107 mg/dL (74-99); Non-African American GFR(CKD) >90 (>60 ml/min/1.73 sqM); Potassium 4.1 mmol/L (3.5-5.1); Sodium 133 mmol/L (137-145)
[2021-05-11] MEDS ORDERED: ACETAMINOPHEN TAB 500 MG TAB PO PRN (07:52)
[2021-05-11] MEDS ORDERED: hydrALAZINE HCL 25 MG TAB PO PRN (07:53)
[2021-05-11] MEDS ORDERED: lisinopriL 5 MG TAB PO SCH (09:00)
[2021-05-11] MEDS ORDERED: ASPIRIN 325 MG TAB PO SCH (09:00)
[2021-05-11] MEDS ORDERED: amLODIPine 5 MG TAB PO SCH (09:00)
--- NOTE | 2021-05-11 09:39 | P.PN ---
Subjective Progress Note Date: 05/11/21 Principal diagnosis: Atypical chest discomfort The patient is a 70-year-old female patient with hypertension and paroxysmal atrial fibrillation who underwent atrial fibrillation ablation this past . She presented to the hospital complaining of chest discomfort which seems to be pleuritic/atypical. She stated that the chest discomfort has resolved. She underwent a computed tomography scan of the chest and that showed no evidence of PE. She has no coronary artery disease or coronary revascularization. The patient was seen this morning beach she is chest pain-free. The pressure continues to be elevated. I'm going to increase the dose of amlodipine and add chlorthalidone to the current medical regimen. Also going to add colchicine to the current medical regimen for potential pericarditis could be triggered by the ablation. Echo still pending. Objective - Vital Signs Vital signs: Vital Signs Temp 97.9 F 05/11/21 04:00 Pulse 84 05/11/21 04:00 Resp 18 05/11/21 04:00 BP 188/73 05/11/21 04:00 Pulse Ox 92 L 05/11/21 04:00 Intake & Output 05/10/21 05/11/21 05/11/21 18:59 06:59 18:59 Intake Total 100 Balance 100 Weight 72.575 kg 72.575 kg Intake: Oral 100 Other: Voiding Method Toilet # Voids 3 - Constitutional General appearance: Present: no acute distress - Respiratory Respiratory: bilateral: CTA - Cardiovascular Rhythm: regular Heart sounds: normal: S1, S2 - Labs CBC & Chem 7: 05/11/21 06:29 05/11/21 06:29 Labs: Abnormal Lab Results - Last 24 Hours (Table) 05/10/21 05/10/21 05/10/21 Range/Units 11:35 11:35 11:35 WBC 18.7 H (3.8-10.6) k/uL MCV 100.5 H (80.0-100.0) fL Neutrophils # 15.2 H (1.3-7.7) k/uL Lymphocytes # 0.8 L (1.0-4.8) k/uL Monocytes # 1.6 H (0-1.0) k/uL PT 12.8 H (9.0-12.0) sec INR 1.2 H (<1.2) APTT 32.7 H (22.0-30.0) sec D-Dimer 0.63 H (<0.60) mg/L FEU Sodium 135 L (137-145) mmol/L BUN 18 H (7-17) mg/dL Glucose 122 H (74-99) mg/dL AST 40 H (14-36) U/L ALT 47 H (4-34) U/L Troponin I (0.000-0.034) ng/mL 05/10/21 05/10/21 05/10/21 Range/Units 11:35 14:27 18:10 WBC (3.8-10.6) k/uL MCV (80.0-100.0) fL Neutrophils # (1.3-7.7) k/uL Lymphocytes # (1.0-4.8) k/uL Monocytes # (0-1.0) k/uL PT (9.0-12.0) sec INR (<1.2) APTT (22.0-30.0) sec D-Dimer (<0.60) mg/L FEU Sodium (137-145) mmol/L BUN (7-17) mg/dL Glucose (74-99) mg/dL AST (14-36) U/L ALT (4-34) U/L Troponin I 0.362 H* 0.302 H* 0.277 H* (0.000-0.034) ng/mL 05/11/21 05/11/21 Range/Units 06:29 06:29 WBC 10.9 H (3.8-10.6) k/uL MCV 101.7 H (80.0-100.0) fL Neutrophils # (1.3-7.7) k/uL Lymphocytes # (1.0-4.8) k/uL Monocytes # 1.2 H (0-1.0) k/uL PT (9.0-12.0) sec INR (<1.2) APTT (22.0-30.0) sec D-Dimer (<0.60) mg/L FEU Sodium 133 L (137-145) mmol/L BUN (7-17) mg/dL Glucose 107 H (74-99) mg/dL AST (14-36) U/L ALT (4-34) U/L Troponin I (0.000-0.034) ng/mL Assessment and Plan Assessment: Assessment #1 paroxysmal atrial fibrillation status post ablation #2 atypical/pleuritic chest discomfort #3 hypertension emergency #4 multiple comorbid conditions Plan #1 increase the dose of amlodipine #2 add chlorthalidone #3 follow-up on the echo #4 add colchicine #5 follow-up with the patient
[2021-05-11] MEDS: ESTROGENS, CONJUGATED 0.625 MG TAB PO SCH (10:14)
[2021-05-11] MEDS: LOSARTAN 50 MG TAB PO SCH (10:14)
[2021-05-11] MEDS: DILTIAZEM CD 180 MG CAP.ER.24H PO SCH ×2 (10:14→21:30)
[2021-05-11] MEDS: SOTALOL 120 MG TAB PO SCH ×2 (10:14→21:31)
[2021-05-11] MEDS: NICOTINE 21MG/24HR PATCH TRANSDERM SCH (10:15)
[2021-05-11] MEDS: IPRATROPIUM 0.5 MG/2.5 ML NEBU INHALATION SCH ×4 (11:01→20:53)
[2021-05-11 11:08] LABS: Chol/HDL Ratio 1.84 Ratio; LDL Cholesterol,Calculated 70.6 mg/dL (0.0-131.0); VLDL Calculation 14.36 mg/dL (5.00-40.00)
--- NOTE | 2021-05-11 14:11 | P.PN ---
Subjective Progress Note Date: 05/11/21 Patient is doing well today. Patient says her chest pressure has improved. Seen by cardiology, started on new medication for her blood pressure. Gen: awake, alert HEENT: normocephalic, atraumatic, good hearing acuity, moist mucous membranes Resp: good air exchange, breathing comfortably with no accessory muscle use CVS: good distal perfusion x 4, GI: soft, NTTP, ND : no SPT, no CVAT, leonardo catheter not present MSK: no pitting edema, no clubbing Neuro: non-focal, moving all extremities Psych: cooperative, euthymic mood Assessment/plan: Hypertensive urgency Paroxysmal atrial fibrillation status post ablation Atypical chest pain -Admit to inpatient, telemetry -Cardiology following -Added amlodipine, chlorthalidone, hydralazine when necessary -Resume home losartan -Resume home sotalol -CTA negative for pulmonary embolism -Pending echocardiogram Patient is full code Objective - Vital Signs Vital signs: Vital Signs Temp 98.3 F 05/11/21 11:20 Pulse 68 05/11/21 13:25 Resp 16 05/11/21 11:20 BP 109/65 05/11/21 13:25 Pulse Ox 97 05/11/21 12:18 Intake & Output 05/10/21 05/11/21 05/11/21 18:59 06:59 18:59 Intake Total 100 730 Balance 100 730 Weight 72.575 kg 72.575 kg Intake: IV 10 Invasive Line 2 10 Oral 100 720 Other: Voiding Method Toilet Toilet # Voids 3 2 - Labs CBC & Chem 7: 05/11/21 06:29 05/11/21 06:29 Labs: Abnormal Lab Results - Last 24 Hours (Table) 05/10/21 05/10/21 05/11/21 Range/Units 14:27 18:10 06:29 WBC (3.8-10.6) k/uL MCV (80.0-100.0) fL Monocytes # (0-1.0) k/uL Sodium 133 L (137-145) mmol/L Glucose 107 H (74-99) mg/dL Troponin I 0.302 H* 0.277 H* (0.000-0.034) ng/mL HDL Cholesterol 101.00 H (40.00-60.00) mg/dL 05/11/21 Range/Units 06:29 WBC 10.9 H (3.8-10.6) k/uL MCV 101.7 H (80.0-100.0) fL Monocytes # 1.2 H (0-1.0) k/uL Sodium (137-145) mmol/L Glucose (74-99) mg/dL Troponin I (0.000-0.034) ng/mL HDL Cholesterol (40.00-60.00) mg/dL
[2021-05-11] MEDS: COLCHICINE 0.6 MG EACH PO SCH (21:31)
[2021-05-11] MEDS: RIVAROXABAN 20 MG TAB PO SCH (21:31)
[2021-05-11] MEDS: MORPHINE SULFATE 2 MG/ML SYRINGE IVP PRN (21:53)
[2021-05-12] MEDS: LOSARTAN 50 MG TAB PO SCH (05:13)
[2021-05-12] MEDS: DILTIAZEM CD 180 MG CAP.ER.24H PO SCH (05:13)
[2021-05-12] MEDS: SOTALOL 120 MG TAB PO SCH (06:42)
[2021-05-12] MEDS: THIAMINE 100 MG TAB PO SCH (06:43)
[2021-05-12] MEDS: COLCHICINE 0.6 MG EACH PO SCH (06:43)
[2021-05-12] MEDS: IPRATROPIUM 0.5 MG/2.5 ML NEBU INHALATION SCH ×2 (07:46→11:21)
[2021-05-12] MEDS ORDERED: amLODIPine 10 MG TAB PO SCH (09:00)
[2021-05-12] MEDS ORDERED: CHLORTHALIDONE 25 MG TAB PO SCH (09:00)
[2021-05-12] MEDS: NICOTINE 21MG/24HR PATCH TRANSDERM SCH (09:16)
[2021-05-12] MEDS: ESTROGENS, CONJUGATED 0.625 MG TAB PO SCH (09:16)
[2021-05-12 09:24] VITALS: PULSE 65; TEMP 97.7
[2021-05-12 12:04] VITALS: BP 167/75; RESP 18
--- NOTE | 2021-05-12 14:43 | P.PN ---
Subjective The patient is a 70-year-old female patient with hypertension and paroxysmal atrial fibrillation who underwent atrial fibrillation ablation this past . She presented to the hospital complaining of chest discomfort which seems to be pleuritic/atypical. She stated that the chest discomfort has resolved. She underwent a CT of the chest and that showed no evidence of PE. She has no coronary artery disease or coronary revascularization. Patient seen at bedside, no acute distress. She denies any further chest pain. She is hemodynamically stable. There was concern for pericarditis and colchicine was started. Echocardiogram reviewed at bedside by Dr. Gonzalez with no significant abnormalities. Her blood pressure has improved. GENERAL: Well-appearing, well-nourished and in no acute distress. NECK: Supple without JVD or thyromegaly. LUNGS: Breath sounds clear to auscultation bilaterally. Respiration equal and unlabored. No wheezes, rales or rhonchi. HEART: Regular rate and rhythm without murmurs, rubs or gallops. S1 and S2 hear d. EXTREMITIES: Normal range of motion, no edema. No clubbing or cyanosis. Peripheral pulses intact. ASSESSMENT Paroxysmal atrial fibrillation status post ablation Atypical/pleuritic chest discomfort, possible pericarditis Hypertension urgency PLAN From cardiology perspective patient stable. Echocardiogram reviewed at bedside by Dr. Gonzalez with no significant abnormalities. Recommend continuing amlodipine 10 mg daily, chlorthalidone, colchicine 0.6 mg twice a day. 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 Gonzalez outpatient Nurse Practitioner note has been reviewed, I agree with a documented findings and plan of care. Patient was seen and examined. Objective - Vital Signs Vital signs: Vital Signs Temp 97.7 F 05/12/21 12:00 Pulse 65 05/12/21 12:00 Resp 18 05/12/21 12:00 BP 167/75 05/12/21 12:00 Pulse Ox 95 05/12/21 12:00 Intake & Output 05/11/21 05/12/21 05/12/21 18:59 06:59 18:59 Intake Total 952 Balance 952 Intake: IV 10 Invasive Line 2 10 Oral 942 Other: Voiding Method Toilet Toilet Toilet Incontinent # Voids 2 1 # Bowel Movements 1 - Labs CBC & Chem 7: 05/11/21 06:29 05/11/21 06:29 Labs: Microbiology - Last 24 Hours (Table) 05/10/21 13:46 Blood Culture - Preliminary Blood No Growth after 24 hours 05/10/21 13:46 Blood Culture - Preliminary Blood No Growth after 24 hours
--- NOTE | 2021-05-12 15:15 | P.DS ---
Providers Date of admission: 05/10/21 12:33 Expected date of discharge: 05/12/21 Attending physician: Maximino Nolan MD Consults: 05/10/21 12:33 Consult Physician Urgent Consulting Provider: [facility] Consult Reason/Comments: Chest pain, elevated troponin Do you want consulting provider notified?: Yes Primary care physician: [facility] Course: Hypertensive urgency Paroxysmal atrial fibrillation status post ablation Atypical chest pain -Admitted to inpatient, with telemetry. Cardiology was consulted, and added blood pressure medications including amlodipine, chlorthalidone. Her home losartan was resumed. Her home sotalol was resumed. She had a CTA done which was negative for poor embolism. Echocardiogram showed appropriate ejection fraction without any significant wall motion abnormality. Patient was subsequently discharged home, after resolution of her symptoms. She'll follow up with cardiology as needed as well as with her primary care physician. I spent 35 minutes coordinating this complex discharge Gen: awake, alert HEENT: normocephalic, atraumatic, good hearing acuity, moist mucous membranes Resp: good air exchange, breathing comfortably with no accessory muscle use CVS: good distal perfusion x 4, GI: soft, NTTP, ND : no SPT, no CVAT, leonardo catheter not present MSK: no pitting edema, no clubbing Neuro: non-focal, moving all extremities Psych: cooperative, euthymic mood Patient Condition at Discharge: Good Plan - Discharge Summary Discharge Rx Participant: No New Discharge Prescriptions: New amLODIPine [Norvasc] 10 mg PO DAILY #30 tab Chlorthalidone [Hygroton] 25 mg PO DAILY #30 tab Colchicine [Colcrys] 0.6 mg PO BID #60 each Continue Multivitamins, Thera [Multivitamin (formulary)] 1 tab PO DAILY Tiotropium Papillion [Spiriva] 1 cap INHALATION RT-DAILY L.acidoph,Paracasei, B.lactis [Probiotic] 1 cap PO DAILY Estrogens, Conjugated [Premarin] 0.625 mg PO DAILY Furosemide [Lasix] 40 mg PO DAILY PRN PRN Reason: Shortness Of Breath/EDEMA Famotidine [Zantac-360 (Famotidine)] 20 mg PO DAILY PRN PRN Reason: ACID REFLUX Rivaroxaban [Xarelto] 20 mg PO HS Losartan [Cozaar] 50 mg PO DAILY Diltiazem HCl [Diltiazem HCl 24Hr ER (CD)] 180 mg PO BID Sotalol [Betapace] 180 mg PO BID Acetaminophen Tab [Tylenol] 1,000 mg PO Q6HR PRN PRN Reason: Pain Discharge Medication List L.acidoph,Paracasei, B.lactis [Probiotic] 1 cap PO DAILY 08/19/16 [History] Multivitamins, Thera [Multivitamin (formulary)] 1 tab PO DAILY 08/19/16 [History] Tiotropium Papillion [Spiriva] 1 cap INHALATION RT-DAILY 08/19/16 [History] Estrogens, Conjugated [Premarin] 0.625 mg PO DAILY 11/16/17 [History] Diltiazem HCl [Diltiazem HCl 24Hr ER (CD)] 180 mg PO BID 01/24/21 [History] Losartan [Cozaar] 50 mg PO DAILY 01/24/21 [History] Rivaroxaban [Xarelto] 20 mg PO HS 01/24/21 [History] Acetaminophen Tab [Tylenol] 1,000 mg PO Q6HR PRN 05/10/21 [History] Famotidine [Zantac-360 (Famotidine)] 20 mg PO DAILY PRN 05/10/21 [History] Furosemide [Lasix] 40 mg PO DAILY PRN 05/10/21 [History] Sotalol [Betapace] 180 mg PO BID 05/10/21 [History] Chlorthalidone [Hygroton] 25 mg PO DAILY #30 tab 05/12/21 [Rx] Colchicine [Colcrys] 0.6 mg PO BID #60 each 05/12/21 [Rx] amLODIPine [Norvasc] 10 mg PO DAILY #30 tab 05/12/21 [Rx] Follow up Appointment(s)/Referral(s): Asaf Gonzalez MD [STAFF PHYSICIAN] - 2 Weeks Enio Shepard DO [Primary Care Provider] - 1-2 days (May 13 1:45) Patient Instructions/Handouts: Chest Pain (DC) Activity/Diet/Wound Care/Special Instructions: heart healthy diet activity as tolerated Discharge Disposition: HOME SELF-CARE
--- NOTE | 2021-05-13 08:20 | ECHOF ---
Referral Reason:chest pain MEASUREMENTS -------- HEIGHT: 162.6 cm WEIGHT: 72.6 kg BP: IVSd: 1.0 cm (0.6 - 1.1) LVIDd: 3.0 cm (3.9 - 5.3) LVPWd: 1.3 cm (0.6 - 1.1) EDV(Teich): 35 ml IVSs: 1.5 cm LVIDs: 1.4 cm LVPWs: 1.2 cm %IVS Thck: 52 % ESV(Teich): 5 ml EF(Teich): 85 % %FS: 53 % SV(Teich): 30 ml MV E James: 1.30 m/s MV DecT: 254 ms MV Dec [place]: 5.1 m/s MV A James: 0.91 m/s MV E/A Ratio: 1.43 MV PHT: 74 ms MV PHT: 78 ms MVA By PHT: 2.8 cm MV Vmax: 1.32 m/s MV Vmean: 0.94 m/s MV maxP.99 mmHg MV meanP.86 mmHg MV VTI: 41.1 cm MR Vmax: 0.89 m/s MR maxP.15 mmHg AV Vmax: 1.15 m/s AV maxP.25 mmHg TR Vmax: 1.04 m/s TR maxP.35 mmHg RAP: 5.00 mmHg RVSP: 9.35 mmHg FINDINGS -------- This was a technically difficult study with suboptimal views. The left ventricular size is normal. There is mild concentric left ventricular hypertrophy. Overa ll left ventricular systolic function is normal with, an EF between 55 - 60 %. The right ventricle is normal in size. The left atrial size is normal. The right atrial size is normal. The aortic valve is trileaflet and appears structurally normal. The mitral valve is normal. The mitral valve leaflets are mildly thickened. Mild mitral annular c alcification present. Mild mitral regurgitation is present. The tricuspid valve appears structurally normal. Mild tricuspid regurgitation present. Right vent ricular systolic pressure is normal at < 35 mmHg. There is no pulmonic regurgitation present. The aortic root size is normal. IVC Not well visulized. There is no pericardial effusion. CONCLUSIONS -------- 1. The left ventricular size is normal. 2. There is mild concentric left ventricular hypertrophy. 3. Overall left ventricular systolic function is normal with, an EF between 55 - 60 %. 4. The mitral valve leaflets are mildly thickened. 5. Mild mitral annular calcification present. 6. Mild mitral regurgitation is present. 7. Mild tricuspid regurgitation present. 8. There is no pericardial effusion. MATRIX INSPECTOR: Peggy Hardy RDCS
== END 2021-05-12 13:10 | disposition home or self-care (01) | DRG 305 ==
LOC: EC 11:01 → 3SCARD 12:33
PROVIDERS: ADMIT Internal Medicine; ATTEND Internal Medicine
DX: I16.0 Hypertensive urgency (principal); R07.89 Other chest pain; D72.829 Elevated white blood cell count, unspecified; E78.5 Hyperlipidemia, unspecified; F17.200 Nicotine dependence, unspecified, uncomplicated; F32.A Depression, unspecified; F43.10 Post-traumatic stress disorder, unspecified; I10 Essential (primary) hypertension; I48.0 Paroxysmal atrial fibrillation; J44.9 Chronic obstructive pulmonary disease, unspecified; Z79.01 Long term (current) use of anticoagulants; Z79.899 Other long term (current) drug therapy; Z82.49 Family history of ischemic heart disease and other diseases of the circulatory system; Z86.010 Personal history of colon polyps; Z90.710 Acquired absence of both cervix and uterus
CPT/HCPCS: 36415; 71046; 71275; 80048; 80053; 80061; 81003; 83036; 83605; 83735; 83880; 84484; 85025; 85379; 85610; 85730; 87040; 93306; 94760; 96374; 96375; 99285

== ENCOUNTER → 2021-11-07 | Outpatient (CLI) | payer BC ==
--- NOTE | 2021-11-10 08:54 | MR ---
EXAMINATION TYPE: MR abdomen wo/w con DATE OF EXAM: 11/07/2021 2:40 PM INDICATION: Patient age:Female; 71 years old; Reason for study: M79.89 SOFT TISSUE MASS;. Soft tissue mass, Patient states adrenal gland abnormalit y COMPARISON: None TECHNIQUE: Multiplanar multi-sequence imaging was performed without contrast. Post contrast imaging was performed. IV Contrast: 7 cc Gadavist FINDINGS: LOWER CHEST: No gross irregularity. ABDOMEN Liver: Unremarkable. Gallbladder and Bile ducts: Unremarkable. Pancreas: Unremarkable. Spleen: Unremarkable. Adrenal glands: Previous described mass appears to be coming from the lateral limb of the adrenal gla nd best appreciated on series 701 image 30. This area measures 3.5 x 2.5 x 3.2 cm and is heterogenous T1/T2 signal. There is restricted diffusion seen within this lesion. There is no definitive signal d ropout on chemical shift of phase imaging compared and phase imaging however respiratory motion limit s evaluation.There is slightly heterogenous postcontrast enhancement. Kidneys: High T2 low T1 renal cysts are seen bilaterally. A high T1 signal cysts is seen inferiorly i n the left kidney measuring up to 7 mm most consistent with proteinaceous/hemorrhagic cyst. Stomach and Bowel: Unremarkable as visualized. Peritoneum: No evidence of pneumoperitoneum, free fluid, or adenopathy. Vasculature: Unremarkable. No aortic aneurysm. Abdominal wall: Unremarkable. Musculoskeletal: The osseous structures appear intact. 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 Findings may represent a pheochromocytoma, adrenal collision tumor, adrenal lipid poor kevin samantha versus other etiologies. In the setting of cancer this may represent metastatic disease. Correlat ion for hypertension and urine metanephrines for pheochromocytoma as well as other adrenal serum regis ers is recommended.
== END | disposition home or self-care (01) ==
LOC: RADMRIMAIN 13:38
PROVIDERS: ATTEND Family Medicine
DX: E27.9 Disorder of adrenal gland, unspecified (principal)
CPT/HCPCS: 74183; A9585

== ENCOUNTER 2022-03-07 14:51 | Emergency (ER) | payer BC, MEDICARE ==
[2022-03-07 15:51] LABS: Anisocytosis Slight; Basophils # (A) 0.1 k/uL (0-0.2); Basophils % (A) 1 %; Eosinophils # (A) 0.1 k/uL (0-0.7); Eosinophils % (A) 1 %; HCT 35.2 % (34.0-46.0); HGB 10.7 gm/dL (11.4-16.0); Hypochromasia Marked; Lymphocytes # (A) 1.1 k/uL (1.0-4.8); Lymphocytes % (A) 9 %; MCH 23.9 pg (25.0-35.0); MCHC 30.3 g/dL (31.0-37.0); MCV 78.8 fL (80.0-100.0); Mean Platelet Volume 7.7; Microcytosis Slight; Monocytes # (A) 0.8 k/uL (0-1.0); Monocytes % (A) 7 %; Neutrophils # (A) 9.4 k/uL (1.3-7.7); Neutrophils % (A) 79 %; Platelet Count 733 k/uL (150-450); Poikilocytosis Slight; RBC 4.46 m/uL (3.80-5.40); RDW 16.8 % (11.5-15.5); WBC 11.9 k/uL (3.8-10.6)
[2022-03-07 16:00] LABS: Albumin 4.8 g/dL (3.5-5.0); Calcium 9.8 mg/dL (8.4-10.2); Magnesium 1.7 mg/dL (1.6-2.3); Potassium 3.4 mmol/L (3.5-5.1); Total Bilirubin 0.7 mg/dL (0.2-1.3); Total Protein 8.7 g/dL (6.3-8.2)
[2022-03-07 16:02] LABS: INR 1.1 (<1.2); Prothrombin Time 11.1 sec (9.0-12.0)
--- NOTE | 2022-03-07 16:18 | XR ---
EXAMINATION TYPE: XR chest 2V DATE OF EXAM: 03/07/2022 3:58 PM COMPARISON: Chest x-ray 05/10/2021 TECHNIQUE: XR chest 2V . CLINICAL INDICATION:Female, 71 years old with history of Weakness; FINDINGS: Lungs/Pleura: Prominent interstitial lung markings are seen scattered throughout the lungs. No eviden ce of focal consolidation, pneumothorax or pleural effusion. Pulmonary vascularity: Unremarkable. Heart/mediastinum: Cardiomediastinal silhouette is unremarkable. Atherosclerotic calcifications are seen in the aorta. Musculoskeletal: Multiple level degenerative disc disease changes seen throughout the spine. IMPRESSION: No acute cardiopulmonary disease/process.
[2022-03-07] MEDS ORDERED: SODIUM CHLORIDE 0.9% 1,000 ML IV ONE (16:38)
--- NOTE | 2022-03-07 17:59 | ED ---
Weakness HPI - General Chief complaint: Weakness Stated complaint: Fatigue,weakness Time Seen by Provider: 03/07/22 15:10 Source: patient Mode of arrival: ambulatory Limitations: no limitations - History of Present Illness Initial comments: 71-year-old female presents to the emergency department with several complaints. Patient reports to increasing weakness. States that both of her legs feel so weak that she has had difficulty ambulating around her house. Symptoms have been persistent for the past 8 months. 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 States that her appointment is next week however she felt that she could not make it to that appointment due to her weakness. She denies chest pain or shortness of breath. No headaches or visual changes. No fevers. No abdominal pain. Does admit to some mild right- sided back pain which is worse with movement and better with rest. This has b een persistent for several months as well without any workup. She denies any numbness, tingling into her legs. No lateralizing symptoms. Was recently treated for urinary tract infection which was proven to have cleared. She denies any dizziness. Does report constipation. No changes in her urination currently. No alleviating, precipitating or modifying factors - Related Data Home Medications Medication Instructions Recorded Confirmed L.acidoph,Paracasei, B.lactis 1 cap PO DAILY 08/19/16 03/07/22 [Probiotic] Multivitamins, Thera [Multivitamin 1 tab PO DAILY 08/19/16 03/07/22 (formulary)] Tiotropium Cecil [Spiriva] 1 cap INHALATION RT-DAILY 08/19/16 03/07/22 Estrogens, Conjugated [Premarin] 0.625 mg PO DAILY 11/16/17 03/07/22 Rivaroxaban [Xarelto] 20 mg PO HS 01/24/21 03/07/22 dilTIAZem HCL [dilTIAZem HCL 24Hr 180 mg PO BID 01/24/21 03/07/22 ER (CD)] Albuterol Inhaler [Ventolin Hfa 1 - 2 puff INHALATION RT-QID PRN 03/07/22 03/07/22 Inhaler] Sotalol [Betapace] 80 mg PO BID 03/07/22 03/07/22 Previous Rx's Medication Instructions Recorded Chlorthalidone [Hygroton] 25 mg PO DAILY #30 tab 05/12/21 amLODIPine [Norvasc] 10 mg PO DAILY #30 tab 05/12/21 Docusate [Colace] 100 mg PO BID #60 capsule 03/07/22 Allergies Allergy/AdvReac Type Severity Reaction Status Date / Time No Known Allergies Allergy Verified 03/07/22 19:20 Review of Systems ROS Statement: Those systems with pertinent positive or pertinent negative responses have been documented in the HPI. ROS Other: All systems not noted in ROS Statement are negative. Past Medical History Past Medical History: Atrial Fibrillation, Asthma, COPD, Hypertension Additional Past Medical History / Comment(s): diverticulosis, urinary incontinence, current anemia, loss of bowel control recently, hx. colon polyps, poss. thyroid nodule. ADRENal mass History of Any Multi-Drug Resistant Organisms: C-DIFF Date of last positivie culture/infection: 2017 MDRO Source:: stool Past Surgical History: Appendectomy, Hysterectomy, Orthopedic Surgery, Tonsi llectomy Additional Past Surgical History / Comment(s): foot surg., rhinoplasty, cataracts removed, blepharoplasty,fallopian tube surg. ablation at [facility] (05/07/21) Past Anesthesia/Blood Transfusion Reactions: No Reported Reaction Past Psychological History: Anxiety, Depression, PTSD Smoking Status: Current every day smoker Past Alcohol Use History: Occasional Past Drug Use History: None Reported - Past Family History Father Family Medical History: Prostate Disorder Additional Family Medical History / Comment(s): panic attacks Mother Family Medical History: Hypertension General Exam Limitations: no limitations General appearance: alert, in no apparent distress Head exam: Present: atraumatic, normocephalic, normal inspection Eye exam: Present: normal appearance, PERRL, EOMI. Absent: scleral icterus, co njunctival injection, periorbital swelling ENT exam: Present: normal exam, mucous membranes moist Neck exam: Present: normal inspection. Absent: tenderness, meningismus, lymphadenopathy Respiratory exam: Present: normal lung sounds bilaterally. Absent: respiratory distress, wheezes, rales, rhonchi, stridor Cardiovascular Exam: Present: regular rate, normal rhythm, normal heart sounds. Absent: systolic murmur, diastolic murmur, rubs, gallop, clicks GI/Abdominal exam: Present: soft, normal bowel sounds. Absent: distended, tenderness, guarding, rebound, rigid Extremities exam: Present: normal inspection, full ROM, normal capillary refill. Absent: tenderness, pedal edema, joint swelling, calf tenderness Back exam: Present: normal inspection, CVA tenderness (R) Neurological exam: Present: alert, oriented X3, CN II-XII intact Psychiatric exam: Present: normal affect, normal mood Skin exam: Present: warm, dry, intact, normal color. Absent: rash Course Vital Signs 03/07/22 03/07/22 15:00 19:55 Temperature 98.4 F 98.3 F Pulse Rate 83 85 Respiratory 16 17 Rate Blood Pressure 124/63 143/70 O2 Sat by Pulse 96 95 Oximetry EKG Findings - EKG Comments: EKG Findings:: EKG demonstrates a junctional rhythm with a rate of 80. NV interval of 133. QRS 75. QTC of 447. No acute ST segment elevations or depres sions Medical Decision Making - Medical Decision Making Was pt. sent in by a medical professional or institution? no Did you speak to anyone other than the patient for history? Did you review nursing and triage notes? yes and I agree Were old charts reviewed? previous hospital records to include MRI of abdomen Differential Diagnosis? @ Differential Weakness: Hypoglycemia, shock, sepsis, hyponatremia, anemia, infection, OR, ETOH, adverse medicine reaction, overdose, stroke, this is not meant to be an all-inclusive list. EKG interpreted by me (3pts min.)? yes X-rays interpreted by me (1pt min.)? yes CT interpreted by me (1pt min.)? no U/S interpreted by me (1pt. min.)? no What testing was considered but not performed? (CT, X-rays, U/S, labs)? Why? none What meds were considered but not given? Why? none Did you discuss the management of the patient with other professionals? no Did you reconcile home meds? no Was smoking cessation discussed for >3mins.? no Was critical care preformed (if so, how long)? no Were there social determinants of health that impacted care today? How? (Homelessness, low income, unemployed, alcoholism, drug addiction, tra nsportation, low edu. Level, literacy, decrease access to med. care, [facility], rehab)? none Was there de-escalation of care discussed even if they declined? (Discuss DNR or withdrawal of care, Hospice)? no What co-morbidities impacted this encounter? (DM, HTN, Smoking, COPD, CAD, Cancer, CVA, Hep., AIDS, mental health diagnosis, sleep apnea, morbid obesity)? afib, copd, htn Was patient admitted / discharged? @ Upon arrival, patient was placed into hallway 10. A thorough history and physical exam was performed. Laboratory studies had been ordered from the emergency waiting room. I did add additional laboratory studies and imaging. Patient given a liter bolus of normal saline. Laboratory studies are reviewed by myself and results are discussed with patient. Patient additionally went for chest and back x-ray. I discussed diagnosis, differential and treatment options. Patient will need to follow up with artificial limb fitter for history of thrombocytosis and anemia. She additionally has follow-up with urology at [facility] for her adrenal tumor. Patient will need to see primary care within the next 2-4 days. Recommend MRI due to abnormal lumbar spine x-ray. Patient does have an inhaler and recommended using it for her cough. Return for any new or worsening symptoms. Patient was agreeable to treatment plan and she was discharged home in stable condition Undiagnosed new problem with uncertain prognosis? yes Drug Therapy requiring intensive monitoring for toxicity (Heparin, Nitro, Insulin, Cardizem)? no Were any procedures done? no Diagnosis/symptom? acute generalized weakness, fatigue Acute, or Chronic, or Acute on Chronic? acute on chronic Uncomplicated (without systemic symptoms) or Complicated (systemic symptoms)? complicated Side effects of treatment? none Exacerbation, Progression, or Severe Exacerbation] no Poses a threat to life or bodily function? yes - Lab Data Result diagrams: 03/07/22 15:36 03/07/22 15:36 Lab Results 03/07/22 03/07/22 03/07/22 Range/Units 15:36 15:36 15:36 WBC 11.9 H (3.8-10.6) k/uL RBC 4.46 (3.80-5.40) m/uL Hgb 10.7 L (11.4-16.0) gm/dL Hct 35.2 (34.0-46.0) % MCV 78.8 L (80.0-100.0) fL MCH 23.9 L (25.0-35.0) pg MCHC 30.3 L (31.0-37.0) g/dL RDW 16.8 H (11.5-15.5) % Plt Count 733 H (150-450) k/uL MPV 7.7 Neutrophils % 79 % Lymphocytes % 9 % Monocytes % 7 % Eosinophils % 1 % Basophils % 1 % Neutrophils # 9.4 H (1.3-7.7) k/uL Lymphocytes # 1.1 (1.0-4.8) k/uL Monocytes # 0.8 (0-1.0) k/uL Eosinophils # 0.1 (0-0.7) k/uL Basophils # 0.1 (0-0.2) k/uL Hypochromasia Marked Poikilocytosis Slight Anisocytosis Slight Microcytosis Slight PT 11.1 (9.0-12.0) sec INR 1.1 (<1.2) APTT 32.0 H (22.0-30.0) sec Sodium 136 L (137-145) mmol/L Potassium 3.4 L (3.5-5.1) mmol/L Chloride 99 (98-107) mmol/L Carbon Dioxide 25 (22-30) mmol/L Anion Gap 12 mmol/L BUN 14 (7-17) mg/dL Creatinine 0.93 (0.52-1.04) mg/dL Est GFR (CKD-EPI)AfAm 73 (>60 ml/min/1.73 sqM) Est GFR (CKD-EPI)NonAf 63 (>60 ml/min/1.73 sqM) Glucose 133 H (74-99) mg/dL Calcium 9.8 (8.4-10.2) mg/dL Phosphorus 4.0 (2.5-4.5) mg/dL Magnesium 1.7 (1.6-2.3) mg/dL Total Bilirubin 0.7 (0.2-1.3) mg/dL AST 23 (14-36) U/L ALT 20 (4-34) U/L Alkaline Phosphatase 139 H (38-126) U/L Troponin I (0.000-0.034) ng/mL NT-Pro-B Natriuret Pep pg/mL Total Protein 8.7 H (6.3-8.2) g/dL Albumin 4.8 (3.5-5.0) g/dL TSH 1.970 (0.465-4.680) mIU/L Urine Color Urine Appearance (Clear) Urine pH (5.0-8.0) Ur Specific Mitchell (1.001-1.035) Urine Protein (Negative) Urine Glucose (UA) (Negative) Urine Ketones (Negative) Urine Blood (Negative) Urine Nitrite (Negative) Urine Bilirubin (Negative) Urine Urobilinogen (<2.0) mg/dL Ur Leukocyte Esterase (Negative) Urine RBC (0-5) /hpf Urine WBC (0-5) /hpf Ur Squamous Epith Cells (0-4) /hpf Urine Bacteria (None) /hpf Hyaline Casts (0-2) /lpf Urine Mucus (None) /hpf 03/07/22 03/07/22 03/07/22 Range/Units 15:36 16:48 17:06 WBC (3.8-10.6) k/uL RBC (3.80-5.40) m/uL Hgb (11.4-16.0) gm/dL Hct (34.0-46.0) % MCV (80.0-100.0) fL MCH (25.0-35.0) pg MCHC (31.0-37.0) g/dL RDW (11.5-15.5) % Plt Count (150-450) k/uL MPV Neutrophils % % Lymphocytes % % Monocytes % % Eosinophils % % Basophils % % Neutrophils # (1.3-7.7) k/uL Lymphocytes # (1.0-4.8) k/uL Monocytes # (0-1.0) k/uL Eosinophils # (0-0.7) k/uL Basophils # (0-0.2) k/uL Hypochromasia Poikilocytosis Anisocytosis Microcytosis PT (9.0-12.0) sec INR (<1.2) APTT (22.0-30.0) sec Sodium (137-145) mmol/L Potassium (3.5-5.1) mmol/L Chloride (98-107) mmol/L Carbon Dioxide (22-30) mmol/L Anion Gap mmol/L BUN (7-17) mg/dL Creatinine (0.52-1.04) mg/dL Est GFR (CKD-EPI)AfAm (>60 ml/min/1.73 sqM) Est GFR (CKD-EPI)NonAf (>60 ml/min/1.73 sqM) Glucose (74-99) mg/dL Calcium (8.4-10.2) mg/dL Phosphorus (2.5-4.5) mg/dL Magnesium (1.6-2.3) mg/dL Total Bilirubin (0.2-1.3) mg/dL AST (14-36) U/L ALT (4-34) U/L Alkaline Phosphatase (38-126) U/L Troponin I <0.012 (0.000-0.034) ng/mL NT-Pro-B Natriuret Pep 612 pg/mL Total Protein (6.3-8.2) g/dL Albumin (3.5-5.0) g/dL TSH (0.465-4.680) mIU/L Urine Color Yellow Urine Appearance Cloudy H (Clear) Urine pH 6.5 (5.0-8.0) Ur Specific Mitchell 1.017 (1.001-1.035) Urine Protein Trace H (Negative) Urine Glucose (UA) Negative (Negative) Urine Ketones Negative (Negative) Urine Blood Negative (Negative) Urine Nitrite Negative (Negative) Urine Bilirubin Negative (Negative) Urine Urobilinogen 4.0 (<2.0) mg/dL Ur Leukocyte Esterase Small H (Negative) Urine RBC 2 (0-5) /hpf Urine WBC 17 H (0-5) /hpf Ur Squamous Epith Cells 18 H (0-4) /hpf Urine Bacteria Many H (None) /hpf Hyaline Casts 69 H (0-2) /lpf Urine Mucus Few H (None) /hpf Disposition Clinical Impression: Thrombocytosis, Back pain, Weakness, Anemia, Abnormal urinalysis Disposition: HOME SELF-CARE Condition: Stable Instructions (If sedation given, give patient instructions): Anemia (ED) Additional Instructions: You need to see hematology for your anemia and elevated platelet count. You need to see her primary care doctor. Recommend an MRI of your back for your back pain and abnormal back x-ray You need to see the urologist for further management of your adrenal mass Return to the emergency room for any new or worsening symptoms Prescriptions: Docusate [Colace] 100 mg PO BID #60 capsule Is patient prescribed a controlled substance at d/c from ED?: No Referrals: Enio Shepard DO [Primary Care Provider] - 1-2 days Time of Disposition: 19:55
[2022-03-07 18:33] LABS: Appearance,Urine Cloudy (Clear); Bacteria,Urine Many /hpf; Bilirubin,Urine Negative (Negative); Blood,Urine Negative (Negative); Color,Urine Yellow; Glucose,Urine (UA) Negative (Negative); Hyaline Casts,Urine 69 /lpf (0-2); Ketones,Urine Negative (Negative); Leukocyte Esterase,Urine Small (Negative); Mucus,Urine Few /hpf; Nitrite,Urine Negative (Negative); PH, Urine 6.5 (5.0-8.0); Protein,Urine Trace (Negative); RBC,Urine 2 /hpf (0-5); Specific Gravity,Urine 1.017 (1.001-1.035); Squamous Epithelial Cell,Urine 18 /hpf (0-4); WBC,Urine 17 /hpf (0-5)
--- NOTE | 2022-03-07 19:14 | XR ---
EXAMINATION TYPE: XR lumbar spine 2 or 3V DATE OF EXAM: 03/07/2022 6:53 PM INDICATION: Patient age:Female; 71 years old; Reason for study: back pain; PHH. COMPARISON: MRI abdomen 11/07/2021 TECHNIQUE: Frontal, lateral and coned in L5-S1 lateral views of the spine. FINDINGS: Irregular appearance of the left L1 transverse process increased lucency and areas suggesting cortica l erosion. She will bodies are normal in size. Degenerative disc disease of L4-L5 and L5-S1. Normal v ertebral alignment. No acute soft tissue abnormalities. IMPRESSION: 1. Irregular appearance of the left L1 transverse process, correlate for point tenderness at this lev el. 2. 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
[2022-03-07 19:55] VITALS: BP 143/70; PULSE 85; RESP 17; TEMP 98.3
== END 2022-03-07 20:02 | disposition home or self-care (01) ==
LOC: EC 14:51
DX: D75.839 Thrombocytosis, unspecified (principal); D64.9 Anemia, unspecified; R82.90 Unspecified abnormal findings in urine; R53.1 Weakness; I48.91 Unspecified atrial fibrillation; J44.9 Chronic obstructive pulmonary disease, unspecified; I10 Essential (primary) hypertension; F41.9 Anxiety disorder, unspecified; F32.A Depression, unspecified; F17.200 Nicotine dependence, unspecified, uncomplicated; Z79.01 Long term (current) use of anticoagulants; Z79.899 Other long term (current) drug therapy
CPT/HCPCS: 36415; 71046; 72100; 80053; 81001; 83735; 83880; 84100; 84443; 84484; 85025; 85610; 85730; 87077; 87086; 87186; 93005; 96360; 99285

== ENCOUNTER 2023-08-17 11:21 | Day surgery (SDC) | payer BC, MEDICARE ==
[2023-08-12 15:17] VITALS: BMI 24.0
[2023-08-17] MEDS: IV FLUID CONTINUATION 1,000 ML IV ONE (11:15)
[2023-08-17] MEDS ORDERED: LIDOCAINE 1% (10MG/ML) FOR IV START INTRADERMA PRN (11:36)
[2023-08-17 11:48] VITALS: TEMP 98.3
[2023-08-17] MEDS: NA PHOS,M-B/NA PHOS,DI-BA 133 ML ENEMA RECTAL STA (12:06)
[2023-08-17] MEDS: NA PHOS,M-B/NA PHOS,DI-BA 133 ML ENEMA RECTAL ONE ×2 (12:30→13:11)
[2023-08-17] MEDS: LACTATED RINGERS 1,000 ML IV SCH (13:18)
[2023-08-17] MEDS ORDERED: PROPOFOL 10 MG/ML 20 ML VIAL IV ONE (13:19)
--- NOTE | 2023-08-17 13:38 | P.PCN ---
Date of Procedure: 08/17/23 Procedure(s) Performed: BRIEF HISTORY: Patient is a 72-year-old pleasant white female scheduled for an elective colonoscopy as a part of intermittent depth of stool and rectal bleeding for the last few months duration. PROCEDURE PERFORMED: Colonoscopy with biopsy and argon plasma coagulation. PREOPERATIVE DIAGNOSIS: Rectal bleeding. IV sedation per Anesthesia. PROCEDURE: After informed consent was obtained, the patient, was brought into the endoscopy unit. IV sedation was administered by Anesthesia under continuous monitoring. Digital rectal examination was normal. Initially the Olympus CF-160 flexible video colonoscope was then inserted in the rectum, gradually advanced into the cecum without any difficulty. Careful examination was performed as the scope was gradually being withdrawn. Ileocecal valve and the appendiceal orifice were visualized and appeared normal. Prep was excellent. Mucosa of the cecum, 3 mm polyp that was removed by cold biopsy. There were 2 nonbleeding arteriovenous malformations measuring 1 cm in size in the base of the cecum that was coagulated with argon plasma coagulation. Ascending colon, transverse colon, descending colon, sigmoid colon, and rectum appeared normal. Moderate to extensive sigmoid diverticulosis seen. Retroflexion was performed in the rectum and grade 2 internal hemorrhoids s were seen. The patient tolerated the procedure well. 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 She was advised to resume Xarelto tonight. Continue with iron supplements. Monitor CBC periodically..
[2023-08-17 14:00] VITALS: BP 146/81; PULSE 84; RESP 14
== END 2023-08-17 14:25 | disposition home or self-care (01) ==
LOC: ORWHC2ENDO 11:21
PROVIDERS: ATTEND Internal Medicine Gastroenterology
DX: K63.5 Polyp of colon (principal); K64.1 Second degree hemorrhoids; K57.30 Diverticulosis of large intestine without perforation or abscess without bleeding; I10 Essential (primary) hypertension; E78.5 Hyperlipidemia, unspecified; I48.91 Unspecified atrial fibrillation; J44.89 Other specified chronic obstructive pulmonary disease; F17.210 Nicotine dependence, cigarettes, uncomplicated; Z79.51 Long term (current) use of inhaled steroids; Z79.899 Other long term (current) drug therapy; Z79.01 Long term (current) use of anticoagulants
CPT/HCPCS: 88305; 45380; 45388; J2704

== ENCOUNTER → 2024-01-03 | Outpatient (CLI) | payer BC ==
[2024-01-04 02:48] LABS: Basophils # (A) 0.06 X 10*3/uL (0.00-0.10); Basophils % (A) 0.7 %; Eosinophils # (A) 0.13 X 10*3/uL (0.04-0.35); Eosinophils % (A) 1.5 %; HCT 48.5 % (37.2-46.3); HGB 16.5 g/dL (12.0-15.0); Lymphocytes # (A) 1.23 X 10*3/uL (0.90-5.00); Lymphocytes % (A) 14.3 %; MCH 32.9 pg (27.0-32.0); MCV 96.8 FL (80.0-97.0); Mean Platelet Volume 11.1 FL (9.5-12.2); Monocytes # (A) 0.96 X 10*3/uL (0.20-1.00); Monocytes % (A) 11.2 %; NRBC Per 100 WBC 0 X 10*3/uL (0.00-0.01); Neutrophils # (A) 6.18 X 10*3/uL (1.80-7.70); Neutrophils % (A) 71.8 %; Platelet Count 320 X 10*3/uL (140-440); RBC 5.01 X 10*6/uL (4.10-5.20); RDW 13.4 % (11.5-14.5)
[2024-01-04 03:50] LABS: Hepatitis B Surface Antigen Nonreactive (Nonreactive); Hepatitis C IgG Antibody Nonreactive (Nonreactive)
[2024-01-04 04:13] LABS: ALT 17 U/L (8-44); AST 19 U/L (13-35); Albumin 4.6 g/dL (3.8-4.9); Albumin/Globulin Ratio 1.53 Ratio (1.60-3.17); Alkaline Phosphatase 110 U/L (41-126); BUN/Creat Ratio 23.86 Ratio (12.00-20.00); Blood Urea Nitrogen 16.7 mg/dL (9.0-27.0); Calcium 10.3 mg/dL (8.7-10.3); Carbon Dioxide 26.9 mmol/L (21.6-31.8); Chloride 98 mmol/L (96-109); Glucose 100 mg/dL (70-110); Potassium 3.8 mmol/L (3.5-5.5); Sodium 140 mmol/L (135-145); Total Bilirubin 0.4 mg/dL (0.3-1.2); Total Protein 7.6 g/dL (6.2-8.2)
== END | disposition home or self-care (01) ==
LOC: LABWHC1 16:06
PROVIDERS: ATTEND Internal Medicine Gastroenterology
DX: K70.0 Alcoholic fatty liver (principal); F10.10 Alcohol abuse, uncomplicated
CPT/HCPCS: 36415; 80053; 81596; 85025; 86803; 87340

== ENCOUNTER → 2024-09-04 | Outpatient (CLI) | payer MEDICARE ==
--- NOTE | 2024-09-04 16:31 | US ---
EXAMINATION TYPE: US carotid duplex BILAT DATE OF EXAM: 09/04/2024 COMPARISON: NONE CLINICAL INDICATION: Female, 73 years old with history of I48.0 PAROX ART FIB, I25.10, R09.89; Additional History: .... TECHNIQUE: Grayscale, color Doppler and spectral Doppler evaluation of the bilateral carotid systems and vertebral arteries. Indirect Doppler criteria was utilized. FINDINGS: EXAM MEASUREMENTS: RIGHT: Peak Systolic Velocity (PSV) cm/sec ----- Right CCA: 68.9 ----- Right ICA: 194 ----- Right ECA: 118 ICA/CCA ratio: 2.8 RIGHT: End Diastole cm/sec ----- Right CCA: 13.4 ----- Right ICA: 40.2 ----- Right ECA: 0.0 LEFT: Peak Systolic Velocity (PSV) cm/sec ----- Left CCA: 87.8 ----- Left ICA: 122 ----- Left ECA: 146 ICA/CCA ratio: 1.4 LEFT: End Diastole cm/sec ----- Left CCA: 14.3 ----- Left ICA: 28.6 ----- Left ECA: 9.0 VERTEBRALS (direction of flow): Right Vertebral: Antegrade Left Vertebral: Antegrade Rhythm: Normal FOLDER SEAMER NOTES: Very limited scan due to vessel tortuosity & pt unable to lay flat, pt coughing an d swallowing during exam Severe plaque seen bilaterally, elevated velocities seen at Rt ICA Color Doppler imaging shows patency with blood flow throughout the carotid artery. Spectral waveforms are within normal limits. IMPRESSION: Limited examination due to vessel tortuosity and patient condition. Severe atherosclerotic plaque wit hin both carotid bifurcations. Right: 50-69% stenosis of the carotid bifurcation. Left: Less than 50% stenosis of the carotid bifurcation. Criteria for Assigning % of Stenosis / Diameter reduction (Estimation based on the indirect measurements of the internal carotid artery velocities (ICA PSV). 1. Normal (no stenosis)=ICA PSV < 180 cm/s: ratio < 2.0: ICA EDV<40 cm/s. 2. Less than 50% stenosis=ICA PSV < 180 cm/s: ratio < 2.0: ICA EDV<40 cm/s. 3. 50 to 69% stenosis=ICA PSV of 180 to 230 cm/s: ration 2.0 ? 4.0: ICA EDV 40-100 cm/s. PSV 125-180 cm/sec and ICA/CCA PSV Ratio ? 2.0 is also consistent with 50-69% stenosis 4. Greater than 70% stenosis to near occlusion= ICA PSV > 230 cm/s: ratio > 4.0: ICA EDV > 100 cm/s. 5. Near occlusion= ICA PSV velocities may be low or undetectable: variable ratio and ICA EDV. 6. Total occlusion=unable to detect flow. [facility], , 09/04/2024 4:29 PM
== END | disposition home or self-care (01) ==
LOC: RADUSWWP 15:22
PROVIDERS: ATTEND Internal Medicine
DX: I65.23 Occlusion and stenosis of bilateral carotid arteries (principal); I48.0 Paroxysmal atrial fibrillation; I25.10 Atherosclerotic heart disease of native coronary artery without angina pectoris; R09.89 Other specified symptoms and signs involving the circulatory and respiratory systems
CPT/HCPCS: 93880